=== PATIENT | male | born 1960 | race African-American/Black ===

== ENCOUNTER 2016-11-17 10:19 | Emergency (ER) | payer MEDICARE, MEDICAID ==
[2016-11-17] MEDS ORDERED: ASPIRIN 81 MG TABLET, CHEWABLE PO ONE (11:20)
--- NOTE | 2016-11-17 11:21 | ER Document Report ---
ED Medical Screen (RME) - General Chief Complaint: Chest Pain Stated Complaint: CHEST PAIN Time Seen by Provider: 11/17/16 11:20 Mode of Arrival: Ambulatory Information source: Patient TRAVEL OUTSIDE OF THE [place] IN LAST 30 DAYS: No - HPI Patient complains to provider of: Chest Pain Notes: 11/17/16 11:21 Patient is a 56-year-old male with a history of diabetes, hypertension, right BKA, who presents to the emergency room complaining of sharp stabbing and dull and aching chest pain is been going on for the past hour, he reports nausea associated with it but no shortness of breath, no diaphoresis, he did not take anything for the pain prior to coming to the emergency room - Related Data Allergies/Adverse Reactions: hydromorphone HCl [From Dilaudid] Allergy (Verified 11/17/16 10:22) Past Medical History - Past Medical History Cardiac Medical History: Reports: Hx Hypercholesterolemia, Hx Hypertension, Hx Peripheral Vascular Disease Pulmonary Medical History: Reports: Hx Asthma, Hx Pneumonia Neurological Medical History: Reports: Hx Cerebrovascular Accident. Denies: Hx Seizures Endocrine Medical History: Reports: Hx Diabetes Mellitus Type 2 Renal/ Medical History: Reports: Hx Benign Prostatic Hyperplasia, Hx Renal Insufficiency. Denies: Hx Peritoneal Dialysis Malignancy Medical History: GI Medical History: Reports: Hx Gastroesophageal Reflux Disease, Hx Hiatal Hernia Musculoskeltal Medical History: Reports Hx Arthritis - hands, Reports Hx Musculoskeletal Deformity, Reports Hx Musculoskeletal Trauma Skin Medical History: Reports Hx Cellulitis Psychiatric Medical History: Reports: Hx Depression Traumatic Medical History: Reports: Hx Fractures - Abdomen ankle Infectious Medical History: Denies: Hx HIV Past Surgical History: Reports: Hx Inguinal Hernia, Hx Orthopedic Surgery - R BKA, Hx Vascular Surgery - Femoral stent left leg - Immunizations Hx Diphtheria, Pertussis, Tetanus Vaccination: Yes - 2008 Physical Exam - Vital signs Vitals: Temp Pulse Resp BP Pulse Ox 98.3 F 94 18 138/84 H 99 11/17/16 10:11/17/16 10:11/17/16 10:11/17/16 10:11/17/16 10:22 Course - Vital Signs Vital signs: Temp Pulse Resp BP Pulse Ox 98.3 F 94 18 138/84 H 99 11/17/16 10:11/17/16 10:11/17/16 10:22 11/17/16 10:22 11/17/16 10:22
--- NOTE | 2016-11-17 12:12 | RADIOLOGY REPORT (SQ) ---
EXAM DESCRIPTION: CHEST PA/LAT COMPLETED DATE/TIME: 11/17/2016 11:50 am REASON FOR STUDY: cp COMPARISON: 09/27/2015. EXAM PARAMETERS: NUMBER OF VIEWS: two views TECHNIQUE: Digital Frontal and Lateral radiographic views of the chest acquired. RADIATION DOSE: NA LIMITATIONS: none FINDINGS: LUNGS AND PLEURA: No opacities, masses or pneumothorax. No pleural effusion. MEDIASTINUM AND HILAR STRUCTURES: No masses or contour abnormalities. HEART AND VASCULAR STRUCTURES: Heart normal size. No evidence for failure. BONES: No acute findings. HARDWARE: None in the chest. OTHER: No other significant finding. IMPRESSION: NO SIGNIFICANT RADIOGRAPHIC FINDING IN THE CHEST. TECHNICAL DOCUMENTATION: JOB ID: [id number] [email or web address]- All Rights Reserved
[2016-11-17 12:22] LABS: ABSOLUTE BASOPHILS # (AUTO) 0.1 10^3/uL (0.0-0.2); ABSOLUTE EOSINOPHILS # (AUTO) 0.4 10^3/uL (0.0-0.6); ABSOLUTE LYMPHOCYTES (AUTO) 2.2 10^3/uL (0.5-4.7); ABSOLUTE MONOCYTES (AUTO) 0.7 10^3/uL (0.1-1.4); ABSOLUTE NEUT (AUTO) 4.7 10^3/uL (1.7-8.2); APPEARANCE,URINE CLEAR; BASOPHILS % (AUTO) 0.9 % (0-2); BILIRUBIN,URINE NEGATIVE (NEGATIVE); EOSINOPHILS % (AUTO) 4.4 % (0-6); GLUCOSE, URINE NEGATIVE (NEGATIVE); HEMATOCRIT 41.1 % (37.9-51.0); HEMOGLOBIN 13.1 g/dL (13.5-17.0); HGB HCT DIFFERENCE -1.8; KETONES,URINE NEGATIVE (NEGATIVE); LEUKOCYTE ESTERASE,URINE NEGATIVE (NEGATIVE); MEAN CORPUSCULAR HEMOGLOBIN 27.5 pg (27.0-33.4); MEAN CORPUSCULAR HGB CONC 31.9 g/dL (32.0-36.0); MEAN CORPUSCULAR VOLUME 86 fl (80-97); MONOCYTES % (AUTO) 8.4 % (3-13); NITRITE,URINE NEGATIVE (NEGATIVE); PROTEIN,URINE NEGATIVE (NEGATIVE); RED BLOOD COUNT 4.77 10^6/uL (4.35-5.55); SEGMENTED NEUTROPHILS % (AUTO) 59.3 % (42-78); URINE SPECIFIC GRAVITY 1.013; UROBILINOGEN,URINE NEGATIVE mg/dL (<2.0)
[2016-11-17 12:47] LABS: URINE BARBITURATES SCREEN NEGATIVE; URINE METHADONE SCREEN NEGATIVE; URINE OPIATES LOW NEGATIVE; URINE PHENCYCLIDINE SCREEN NEGATIVE
[2016-11-17 12:52] LABS: ALANINE AMINOTRANSFERASE 20 U/L (21-72); ALBUMIN 4.3 g/dL (3.5-5.0); ALKALINE PHOSPHATASE 62 U/L (38-126); ANION GAP 12 (5-19); ASPARTATE AMINO TRANSFERASE 18 U/L (17-59); BILIRUBIN,DIRECT 0.3 mg/dL (0.0-0.4); BILIRUBIN,TOTAL 0.5 mg/dL (0.2-1.3); BLOOD UREA NITROGEN 28 mg/dL (7-20); CALCIUM 9.4 mg/dL (8.4-10.2); CARBON DIOXIDE 22 mmol/L (22-30); CHLORIDE 108 mmol/L (98-107); CREATINE KINASE 101 U/L (55-170); CREATININE RESULT 1.75 mg/dL (0.52-1.25); GLUCOSE 138 mg/dL (75-110); POTASSIUM 4.7 mmol/L (3.6-5.0); SODIUM 142.4 mmol/L (137-145)
[2016-11-17 13:09] LABS: TROPONIN I < 0.012 ng/mL
[2016-11-17 15:50] VITALS: BP 134/85
--- NOTE | 2016-11-17 16:02 | ER Document Report ---
ED General - General Chief Complaint: Chest Pain Stated Complaint: CHEST PAIN Time Seen by Provider: 11/17/16 11:20 Mode of Arrival: Ambulatory Information source: Patient Notes: 56-year-old male history of hypertension hypercholesterolemia right BKA presents with complaint of midsternal epigastric abdominal pain. Patient notes that when he bends forward he gets midsternal chest pressure however when he sits back or lays down the symptoms completely resolved. Patient notes at rest and when laying flat he has no pain ever. States he can easily reproduce the pain when he bends forward Also notes he has muscle cramps in his extremity his neck back TRAVEL OUTSIDE OF THE [place] IN LAST 30 DAYS: No - HPI Onset: Just prior to arrival Onset/Duration: Intermittent Quality of pain: Pressure Severity: Mild Pain Level: 1 Associated symptoms: Chest pain Exacerbated by: Other - Bending forward Relieved by: Denies Similar symptoms previously: No Recently seen / treated by doctor: No - Related Data Allergies/Adverse Reactions: hydromorphone HCl [From Dilaudid] Allergy (Verified 11/17/16 10:22) Past Medical History - General Information source: Patient - Social History Smoking Status: Never Smoker Cigarette use (# per day): No Chew tobacco use (# tins/day): No Smoking Education Provided: No Family History: Arthritis, COPD, CVA, DM, Hyperlipidemia, Hypertension, Malignancy, Thyroid Disfunction Patient has suicidal ideation: No Patient has homicidal ideation: No - Past Medical History Cardiac Medical History: Reports: Hx Hypercholesterolemia, Hx Hypertension, Hx Peripheral Vascular Disease Pulmonary Medical History: Reports: Hx Asthma, Hx Pneumonia Neurological Medical History: Reports: Hx Cerebrovascular Accident. Denies: Hx Seizures Endocrine Medical History: Reports: Hx Diabetes Mellitus Type 2 Renal/ Medical History: Reports: Hx Benign Prostatic Hyperplasia, Hx Renal Insufficiency. Denies: Hx Peritoneal Dialysis Malignancy Medical History: GI Medical History: Reports: Hx Gastroesophageal Reflux Disease, Hx Hiatal Hernia Musculoskeltal Medical History: Reports Hx Arthritis - hands, Reports Hx Musculoskeletal Deformity, Reports Hx Musculoskeletal Trauma Skin Medical History: Reports Hx Cellulitis Psychiatric Medical History: Reports: Hx Depression Traumatic Medical History: Reports: Hx Fractures - Abdomen ankle Infectious Medical History: Denies: Hx HIV Past Surgical History: Reports: Hx Inguinal Hernia, Hx Orthopedic Surgery - R BKA, Hx Vascular Surgery - Femoral stent left leg - Immunizations Hx Diphtheria, Pertussis, Tetanus Vaccination: Yes - 2009 Review of Systems - Review of Systems Notes: REVIEW OF SYSTEMS: CONSTITUTIONAL : Denies fever, chills, or sweats. Denies recent illness. EENT: Denies eye, ear, throat, or mouth pain or symptoms. Denies nasal or sinus congestion or discharge. Denies throat, tongue, or mouth swelling or difficulty swallowing. CARDIOVASCULAR: Admits to chest pain when bending forward RESPIRATORY: Denies cough, cold, or chest congestion. Denies shortness of breath, difficulty breathing, or wheezing. GASTROINTESTINAL: Denies abdominal pain or distention. Denies nausea, vomiting , or diarrhea. Denies blood in vomitus, stools, or per rectum. Denies black, tarry stools. Denies constipation. GENITOURINARY: Denies difficulty urinating, painful urination, burning, frequency, blood in urine, or discharge. MUSCULOSKELETAL: Denies back or neck pain or stiffness. Denies joint pain or swelling. SKIN: Denies rash, lesions or sores. HEMATOLOGIC : Denies easy bruising or bleeding. LYMPHATIC: Denies swollen, enlarged glands. NEUROLOGICAL: Denies confusion or altered mental status. Denies passing out or loss of consciousness. Denies dizziness or lightheadedness. Denies headache. Denies weakness or paralysis or loss of use of either side. Denies problems with gait or speech. Denies sensory loss, numbness, or tingling. Denies seizures. PSYCHIATRIC: Denies anxiety or stress. Denies depression, suicidal ideation, or homicidal ideation. ALL OTHER SYSTEMS REVIEWED AND NEGATIVE. Dictation was performed using [employer] voice recognition software PHYSICAL EXAMINATION: GENERAL: Well-appearing, well-nourished and in no acute distress. HEAD: Atraumatic, normocephalic. EYES: Pupils equal round and reactive to light, extraocular movements intact, sclera anicteric, conjunctiva are normal. ENT: Nares patent, oropharynx clear without exudates. Moist mucous membranes. NECK: Normal range of motion, supple without lymphadenopathy LUNGS: Breath sounds clear to auscultation bilaterally and equal. No wheezes rales or rhonchi. HEART: Regular rate and rhythm without murmurs pain reproducible with movement ABDOMEN: Soft, nontender, nondistended abdomen. No guarding, no rebound. No masses appreciated. Musculoskeletal: Right BKA NEUROLOGICAL: Cranial nerves grossly intact. Normal speech, normal gait. Normal sensory, motor exams PSYCH: Normal mood, normal affect. SKIN: Warm, Dry, normal turgor, no rashes or lesions noted. Physical Exam - Vital signs Vitals: Temp Pulse Resp BP Pulse Ox 98.3 F 94 18 138/84 H 99 11/17/16 10:22 11/17/16 10:22 11/17/16 10:22 11/17/16 10:22 11/17/16 10:22 Course - Re-evaluation Re-evalutation: 11/17/16 16:06 Given that the chest pain is reproducible with bending forward there is no sign of pericarditis on the EKG I do not believe this is cardiac in nature however the patient does have extensive risk factors. I begged them to at least perform 2 sets of cardiac enzymes which the patient was willing to stay for, second set was negative. I have requested that he see a steamer tender to further evaluate his chest pain, both he and his sister and significant other agree with this plan. Patient is very insistent on leaving and is very anxious to leave, I do not believe this is a complete cardiac evaluation and they have been made very aware of this and I do believe that the patient needs to return immediately if there is any other concerns and he states he will do so After performing a Medical Screening Examination, I estimate there is LOW risk for RUPTURED ESOPHAGUS, PNEUMOTHORAX, PULMONARY EMBOLISM, ACUTE CORONARY SYNDROME, OR THORACIC AORTIC DISSECTION, thus I consider the discharge disposition reasonable. I have reevaluated this patient multiple times and no significant life threatening changes are noted. The patient and I have discussed the diagnosis and risks, and we agree with discharging home with close follow-up. We also discussed returning to the Emergency Department immediately if new or worsening symptoms occur. We have discussed the symptoms which are most concerning (e.g., bloody sputum, worsening pain or shortness of breath) that necessitate immediate return. - Vital Signs Vital signs: Temp Pulse Resp BP Pulse Ox 98.3 F 94 15 134/85 H 100 11/17/16 10:22 11/17/16 10:22 11/17/16 15:44 11/17/16 15:44 11/17/16 15:43 - Laboratory Result Diagrams: 11/17/16 11:25 11/17/16 11:25 Laboratory results interpreted by me: 11/17/16 11/17/16 11:25 11:25 Hgb 13.1 L MCHC 31.9 L Chloride 108 H BUN 28 H Creatinine 1.75 H Est GFR ( Amer) 49 L Est GFR (Non-Af Amer) 40 L Glucose 138 H ALT 20 L - Diagnostic Test Radiology reviewed: Image reviewed, Reports reviewed - No acute abnormality - EKG Interpretation by Id EKG shows normal: Sinus rhythm, [place], Intervals, QRS Complexes Discharge - Discharge Clinical Impression: Epigastric pain, Muscle cramp Chest pain Qualifiers: Chest pain type: unspecified Qualified Code(s): R07.9 - Chest pain, unspecified Condition: Stable Disposition: HOME, SELF-CARE Instructions: Chest Pain of Unclear Cause ([facility]) Referrals: NAVDEEP AMADO MD [Primary Care Provider] - Follow up as needed SON HART MD [ACTIVE STAFF] - Follow up tomorrow
--- NOTE | 2016-11-17 17:58 | EKG REPORT ---
SEVERITY:- OTHERWISE NORMAL ECG - SINUS RHYTHM BORDERLINE LEFT AXIS DEVIATION : Confirmed by: Marjorie Staley MD 17-Nov-2016 17:57:33
== END 2016-11-17 16:05 | disposition home or self-care (01) ==
LOC: ER 10:19
DX: R07.9 Chest pain, unspecified (principal); R10.13 Epigastric pain; R25.2 Cramp and spasm; I10 Essential (primary) hypertension; E78.00 Pure hypercholesterolemia, unspecified
CPT/HCPCS: 93005; 99285; 36415; 87086; 82553; 82550; 85025; 87088; 80053; 81001; 84484; 87186; 80307; 83880; 71020; 93010; A9270

== ENCOUNTER 2017-10-04 18:54 | Emergency (ER) | payer MEDICARE, MEDICAID ==
--- NOTE | 2017-10-04 19:09 | ER Document Report ---
HPI - HPI Pain Level: 3 - REPRODUCTIVE Reproductive: DENIES: : Past Medical History - Social History Family History: Arthritis, COPD, CVA, DM, Hyperlipidemia, Hypertension, Malignancy, Thyroid Disfunction - Past Medical History Cardiac Medical History: Reports: Hx Hypercholesterolemia, Hx Hypertension, Hx Peripheral Vascular Disease Pulmonary Medical History: Reports: Hx Asthma, Hx Pneumonia Neurological Medical History: Reports: Hx Cerebrovascular Accident. Denies: Hx Seizures Endocrine Medical History: Reports: Hx Diabetes Mellitus Type 2 Renal/ Medical History: Reports: Hx Benign Prostatic Hyperplasia, Hx Renal Insufficiency. Denies: Hx Peritoneal Dialysis Malignancy Medical History: GI Medical History: Reports: Hx Gastroesophageal Reflux Disease, Hx Hiatal Hernia. Denies: Hx Pancreatitis Musculoskeltal Medical History: Reports Hx Arthritis - hands, Reports Hx Musculoskeletal Deformity, Reports Hx Musculoskeletal Trauma Skin Medical History: Reports Hx Cellulitis Psychiatric Medical History: Reports: Hx Depression Traumatic Medical History: Reports: Hx Fractures - Abdomen ankle Infectious Medical History: Denies: Hx HIV Past Surgical History: Reports: Hx Inguinal Hernia, Hx Orthopedic Surgery - R BKA, Hx Vascular Surgery - Femoral stent left leg - Immunizations Hx Diphtheria, Pertussis, Tetanus Vaccination: Yes - 2008 [employer] Provider Document - INFECTION CONTROL TRAVEL OUTSIDE OF THE [place] IN LAST 30 DAYS: No Course - Vital Signs Vital signs: Temp Pulse Resp BP Pulse Ox 98.6 F 93 16 109/71 97 10/04/17 19:01 10/04/17 19:01 10/04/17 19:01 10/04/17 19:01 10/04/17 19:01
--- NOTE | 2017-10-04 19:16 | ER Document Report ---
ED Medical Screen (RME) - General Chief Complaint: Urinary Problem Stated Complaint: PAINFUL URINATION,URGENCY Time Seen by Provider: 10/04/17 19:08 Mode of Arrival: Ambulatory Information source: Patient Notes: 57 yo DM 2, HTN, male c/o urinary dribbling, frequency, urgency, hesitancy, dysuria since yesterday. Night sweats for months. No PSA or prostate check. Thought he was constipated so he took laxative a week ago. TRAVEL OUTSIDE OF THE [place] IN LAST 30 DAYS: No - Related Data Allergies/Adverse Reactions: hydromorphone HCl [From Dilaudid] Allergy (Verified 10/04/17 18:58) Past Medical History - Past Medical History Cardiac Medical History: Reports: Hx Hypercholesterolemia, Hx Hypertension, Hx Peripheral Vascular Disease Pulmonary Medical History: Reports: Hx Asthma, Hx Pneumonia Neurological Medical History: Reports: Hx Cerebrovascular Accident. Denies: Hx Seizures Endocrine Medical History: Reports: Hx Diabetes Mellitus Type 2 Renal/ Medical History: Reports: Hx Benign Prostatic Hyperplasia, Hx Renal Insufficiency. Denies: Hx Peritoneal Dialysis Malignancy Medical History: GI Medical History: Reports: Hx Gastroesophageal Reflux Disease, Hx Hiatal Hernia. Denies: Hx Pancreatitis Musculoskeltal Medical History: Reports Hx Arthritis - hands, Reports Hx Musculoskeletal Deformity, Reports Hx Musculoskeletal Trauma Skin Medical History: Reports Hx Cellulitis Psychiatric Medical History: Reports: Hx Depression Traumatic Medical History: Reports: Hx Fractures - Abdomen ankle Infectious Medical History: Denies: Hx HIV Past Surgical History: Reports: Hx Inguinal Hernia, Hx Orthopedic Surgery - R BKA, Hx Vascular Surgery - Femoral stent left leg - Immunizations Hx Diphtheria, Pertussis, Tetanus Vaccination: Yes - 2008 Physical Exam - Vital signs Vitals: Temp Pulse Resp BP Pulse Ox 98.6 F 93 16 109/71 97 10/04/17 19:01 10/04/17 19:01 10/04/17 19:01 10/04/17 19:01 10/04/17 19:01 Course - Vital Signs Vital signs: Temp Pulse Resp BP Pulse Ox 98.6 F 93 16 109/71 97 10/04/17 19:01 10/04/17 19:01 10/04/17 19:01 10/04/17 19:01 10/04/17 19:01
[2017-10-04] MEDS ORDERED: TUBERCULIN,PURIF.PROT.DERIV. 5 TU/0.1 ML TEST 1 ML VIAL ID ONE (19:26)
[2017-10-04 19:51] LABS: ABSOLUTE BASOPHILS # (AUTO) 0.1 10^3/uL (0.0-0.2); ABSOLUTE EOSINOPHILS # (AUTO) 0.3 10^3/uL (0.0-0.6); ABSOLUTE LYMPHOCYTES (AUTO) 2.2 10^3/uL (0.5-4.7); ABSOLUTE NEUT (AUTO) 7.3 10^3/uL (1.7-8.2); BASOPHILS % (AUTO) 0.9 % (0-2); EOSINOPHILS % (AUTO) 2.8 % (0-6); HEMOGLOBIN 12.7 g/dL (13.5-17.0); LYMPHOCYTES % (AUTO) 20.4 % (13-45); MEAN CORPUSCULAR HGB CONC 33.3 g/dL (32.0-36.0); MEAN CORPUSCULAR VOLUME 84 fl (80-97); MONOCYTES % (AUTO) 9.5 % (3-13); PLATELET COUNT 186 10^3/uL (150-450); RED BLOOD COUNT 4.53 10^6/uL (4.35-5.55); RED CELL DISTRIBUTION WIDTH 13.3 % (11.5-14.0); SEGMENTED NEUTROPHILS % (AUTO) 66.4 % (42-78); TOTAL CELLS COUNTED % (AUTO) 100 %
[2017-10-04 20:09] LABS: ALANINE AMINOTRANSFERASE 23 U/L (21-72); ALKALINE PHOSPHATASE 71 U/L (38-126); ANION GAP 14 (5-19); ASPARTATE AMINO TRANSFERASE 15 U/L (17-59); BILIRUBIN,DIRECT 0.4 mg/dL (0.0-0.4); BILIRUBIN,TOTAL 0.5 mg/dL (0.2-1.3); BLOOD UREA NITROGEN 36 mg/dL (7-20); CALCIUM 9.6 mg/dL (8.4-10.2); CARBON DIOXIDE 21 mmol/L (22-30); CHLORIDE 108 mmol/L (98-107); GLUCOSE 158 mg/dL (75-110); POTASSIUM 4.8 mmol/L (3.6-5.0); SODIUM 142.7 mmol/L (137-145); TOTAL PROTEIN 6.8 g/dL (6.3-8.2)
--- NOTE | 2017-10-04 20:15 | ER Document Report ---
HPI - HPI Pain Level: 4 Notes: Patient is a 57-year-old male with a history of hypertension and type 2 diabetes who presents to the ED complaining of urinary hesitancy, weak stream, burning, and dribbling over the last week. Patient has also noted night sweats over the last couple years. Patient states that he has been otherwise eating and drinking without difficulties. He is having normal bowel movements. He denies any other recent illness. He has no other concerns or complaints at this time. Denies any headache, fever, neck pain, URI, sore throat, chest pain , palpitations, syncope, cough, shortness of breath, wheeze, dyspnea, abdominal pain, nausea/vomiting/diarrhea, hematuria, back pain, loss of control of bowel or bladder, saddle anesthesia, muscle paralysis/weakness, or rash. - ROS Systems Reviewed and Negative: Yes All other systems reviewed and negative - CONSTITUTIONAL Constitutional: DENIES: Fever, Chills - URINARY Urinary: REPORTS: Dysuria - dribbling, Frequency - and burning with urination - REPRODUCTIVE Reproductive: DENIES: : - DERM Skin Color: Normal Past Medical History - General Information source: Patient - Social History Smoking Status: Current Every Day Smoker Frequency of alcohol use: None Drug Abuse: None Family History: Arthritis, COPD, CVA, DM, Hyperlipidemia, Hypertension, Malignancy, Thyroid Disfunction Patient has suicidal ideation: No Patient has homicidal ideation: No - Past Medical History Cardiac Medical History: Reports: Hx Hypercholesterolemia, Hx Hypertension, Hx Peripheral Vascular Disease Pulmonary Medical History: Reports: Hx Asthma, Hx Pneumonia Neurological Medical History: Reports: Hx Cerebrovascular Accident. Denies: Hx Seizures Endocrine Medical History: Reports: Hx Diabetes Mellitus Type 2 Renal/ Medical History: Reports: Hx Benign Prostatic Hyperplasia, Hx Renal Insufficiency. Denies: Hx Peritoneal Dialysis Malignancy Medical History: GI Medical History: Reports: Hx Gastroesophageal Reflux Disease, Hx Hiatal Hernia. Denies: Hx Pancreatitis Musculoskeltal Medical History: Reports Hx Arthritis - hands, Reports Hx Musculoskeletal Deformity, Reports Hx Musculoskeletal Trauma Skin Medical History: Reports Hx Cellulitis Psychiatric Medical History: Reports: Hx Depression Traumatic Medical History: Reports: Hx Fractures - Abdomen ankle Infectious Medical History: Denies: Hx HIV Past Surgical History: Reports: Hx Inguinal Hernia, Hx Orthopedic Surgery - R BKA, Hx Vascular Surgery - Femoral stent left leg - Immunizations Hx Diphtheria, Pertussis, Tetanus Vaccination: Yes - 2009 [facility] Provider Document - CONSTITUTIONAL Agree With Documented VS: Yes Notes: PHYSICAL EXAMINATION: GENERAL: Well-appearing, well-nourished and in no acute distress. HEAD: Atraumatic, normocephalic. EYES: Pupils equal round and reactive to light, extraocular movements intact, sclera anicteric, conjunctiva are normal. ENT: nares patent and without discharge. oropharynx clear without exudates. No tonsilar hypertrophy or erythema. Moist mucous membranes. NECK: Normal range of motion, supple without lymphadenopathy LUNGS: Breath sounds clear to auscultation bilaterally and equal. No wheezes rales or rhonchi. HEART: Regular rate and rhythm without murmurs, rubs, gallops. ABDOMEN: Soft, nontender, nondistended abdomen. No guarding, no rebound. No masses appreciated. Normal bowel sounds present. No CVA tenderness bilaterally. : no urethral discharge. non-tender. no erythema, warmth. Rectal: Prostate was firm, nontender. I can only palpate about 1/3 of the actual prostate. Extremities: No cyanosis, clubbing, or edema b/l. Peripheral pulses 2+. Capillary refill less than 3 seconds. BKA rt leg. NEUROLOGICAL: Normal speech, normal gait. Normal sensory, motor exams PSYCH: Normal mood, normal affect. SKIN: Warm, Dry, normal turgor, no rashes or lesions noted. - INFECTION CONTROL TRAVEL OUTSIDE OF THE [place] IN LAST 30 DAYS: No Course - Re-evaluation Re-evalutation: 10/04/17 21:14 Patient is an afebrile, well-hydrated, 57-year-old male who presents to the ED with an acute UTI, possible early pyelonephritis (w/o CVA tenderness). Vitals are acceptable. PE is otherwise unremarkable. CBC unremarkable for any acute pathology aside from a mildly elevated wbc at 11. See urinalysis results. Urine cultures pending. CMP shows chronic kidney disease with a creatinine of 2.2. Patient is still on metformin. Advised patient that he needs to stop the metformin until his evaluation with his primary care provider. Patient is otherwise tolerating p.o. without difficulties. PSA was mildly elevated and this will need monitored by a urologist or his primary care provider for further evaluation as well. PPD recommended, pt should go to [facility]/health department to have performed (per charge nurse, we do not have the medicine here ). Will need read in 2-3 days by PCM. I will send him home with a prescription for doxycycline. Conservative measures otherwise for symptoms. Recheck with your PCM in 2-3 days. Monitor sugars closely. Schedule consult with urology. Return to the ED with any worsening/concerning symptoms otherwise as reviewed discharge. Patient is in agreement. - Vital Signs Vital signs: Temp Pulse Resp BP Pulse Ox 98.6 F 93 16 109/71 97 10/04/17 19:01 10/04/17 19:01 10/04/17 19:01 10/04/17 19:01 10/04/17 19:01 - Laboratory Result Diagrams: 10/04/17 19:35 10/04/17 19:35 Laboratory results interpreted by me: 10/04/17 19:35 WBC 11.0 H Hgb 12.7 L Discharge - Discharge Clinical Impression: Acute UTI, Elevated PSA CKD (chronic kidney disease) Qualifiers: Chronic kidney disease stage: unspecified stage Qualified Code(s): N18.9 - Chronic kidney disease, unspecified Condition: Stable Disposition: HOME, SELF-CARE Instructions: Urinary Tract Infection ([facility]), Doxycycline ([facility]) Additional Instructions: Push fluids (i.e. water, cranberry juice) Proper hygenic technique Keep the skin clean Tylenol/ibuprofen as needed Stop your metformin until evaluation by her primary care provider Take medications as directed You should have a PPD performed by your PCM or the health department F/u with your PCM in 2-3 days for a recheck Schedule a consult with a Urologist for further evaluation of your PSA level Return to the ED with any worsening symptoms and/or development of fever, headache, chest pain, palpitations, syncope, shortness of breath, trouble breathing, abdominal pain, n/v/d, blood in stool/urine, loss of control of bowel /bladder, urinary retention, or other worsening symptoms that are concerning to you. Prescriptions: Doxycycline Hyclate 100 mg PO BID #14 capsule Referrals: NAVDEEP AMADO MD [NO LOCAL MD] - 10/06/17 [facility] [Provider Group] - Follow up in 3-5 days
[2017-10-04 20:27] LABS: APPEARANCE,URINE CLOUDY; BILIRUBIN,URINE NEGATIVE (NEGATIVE); COLOR,URINE YELLOW; GLUCOSE, URINE NEGATIVE (NEGATIVE); KETONES,URINE NEGATIVE (NEGATIVE); LEUKOCYTE ESTERASE,URINE LARGE (NEGATIVE); NITRITE,URINE NEGATIVE (NEGATIVE); PROTEIN,URINE 100 mg/dL (NEGATIVE); URINE SPECIFIC GRAVITY 1.013; UROBILINOGEN,URINE NEGATIVE mg/dL (<2.0)
[2017-10-04] MEDS ORDERED: DOXYCYCLINE HYCLATE 100 MG TABLET PO ONE (21:21)
[2017-10-04 21:40] VITALS: BP 120/75
== END 2017-10-04 21:40 | disposition home or self-care (01) ==
LOC: ER 18:54
DX: N39.0 Urinary tract infection, site not specified (principal); R97.20 Elevated prostate specific antigen [PSA]; N18.9 Chronic kidney disease, unspecified; E78.00 Pure hypercholesterolemia, unspecified; I12.9 Hypertensive chronic kidney disease with stage 1 through stage 4 chronic kidney disease, or unspecified chronic kidney disease; E11.22 Type 2 diabetes mellitus with diabetic chronic kidney disease; Z86.73 Personal history of transient ischemic attack (TIA), and cerebral infarction without residual deficits; F17.200 Nicotine dependence, unspecified, uncomplicated
CPT/HCPCS: 99283; 36415; 87086; 82962; 84153; 85025; 87088; 80053; 81001; 87186; A9270; J3490

== ENCOUNTER 2017-12-07 18:48 | Emergency (ER) | payer MEDICARE, MEDICAID ==
--- NOTE | 2017-12-07 19:40 | ER Document Report ---
ED Medical Screen (RME) - General Chief Complaint: Chest Pain Stated Complaint: CHEST PAIN Time Seen by Provider: 12/07/17 19:33 Notes: RAPID MEDICAL EVALUATION DISCLOSURE I have seen this patient as part of a Rapid Medical Evaluation and, if applicable, placed any initially appropriate orders. The patient will be seen and fully evaluated, including a full history and physical exam, by a provider ( in Main ED or Fast Track) when a room becomes available. 57-year-old male here with complaints of midsternal nonradiating chest pain that started 1 hour ago about an hour later just prior to arrival. He did not have any shortness of breath diaphoresis lightheadedness nausea vomiting numbness tingling. He did not take anything for the symptoms. The symptoms were not worse with breathing or exertion. He has no prior history of DVT PE AR but does have a history of peripheral vascular disease with a stent in his left leg. EXAM CTAB RRR TRAVEL OUTSIDE OF THE [place] IN LAST 30 DAYS: No - Related Data Allergies/Adverse Reactions: hydromorphone HCl [From Dilaudid] Allergy (Verified 12/07/17 19:27) Past Medical History - Past Medical History Cardiac Medical History: Reports: Hx Hypercholesterolemia, Hx Hypertension, Hx Peripheral Vascular Disease Pulmonary Medical History: Reports: Hx Asthma, Hx Pneumonia Neurological Medical History: Reports: Hx Cerebrovascular Accident. Denies: Hx Seizures Endocrine Medical History: Reports: Hx Diabetes Mellitus Type 2 Renal/ Medical History: Reports: Hx Benign Prostatic Hyperplasia, Hx Renal Insufficiency. Denies: Hx Peritoneal Dialysis Malignancy Medical History: GI Medical History: Reports: Hx Gastroesophageal Reflux Disease, Hx Hiatal Hernia. Denies: Hx Pancreatitis Musculoskeltal Medical History: Reports Hx Arthritis - hands, Reports Hx Musculoskeletal Deformity, Reports Hx Musculoskeletal Trauma Skin Medical History: Reports Hx Cellulitis Psychiatric Medical History: Reports: Hx Depression Traumatic Medical History: Reports: Hx Fractures - Abdomen ankle Infectious Medical History: Denies: Hx HIV Past Surgical History: Reports: Hx Inguinal Hernia, Hx Orthopedic Surgery - R BKA, Hx Vascular Surgery - Femoral stent left leg - Immunizations Hx Diphtheria, Pertussis, Tetanus Vaccination: Yes - 2008 Physical Exam - Vital signs Vitals: Temp Pulse Resp BP Pulse Ox 97.8 F 87 16 126/79 H 96 12/07/17 19:26 12/07/17 19:26 12/07/17 19:26 12/07/17 19:26 12/07/17 19:26 Course - Vital Signs Vital signs: Temp Pulse Resp BP Pulse Ox 97.8 F 87 16 126/79 H 96 12/07/17 19:26 12/07/17 19:26 12/07/17 19:26 12/07/17 19:26 12/07/17 19:26 Doctor's Discharge - Discharge Referrals: Angelo KUMARI MD [Primary Care Provider] - Follow up as needed
[2017-12-07 20:04] LABS: ABSOLUTE EOSINOPHILS # (AUTO) 0.4 10^3/uL (0.0-0.6); ABSOLUTE LYMPHOCYTES (AUTO) 2.5 10^3/uL (0.5-4.7); ABSOLUTE MONOCYTES (AUTO) 0.6 10^3/uL (0.1-1.4); ABSOLUTE NEUT (AUTO) 4.3 10^3/uL (1.7-8.2); BASOPHILS % (AUTO) 0.6 % (0-2); EOSINOPHILS % (AUTO) 5.1 % (0-6); HEMATOCRIT 39.5 % (37.9-51.0); HEMOGLOBIN 13.1 g/dL (13.5-17.0); LYMPHOCYTES % (AUTO) 32.1 % (13-45); MEAN CORPUSCULAR HEMOGLOBIN 28.5 pg (27.0-33.4); MEAN CORPUSCULAR HGB CONC 33.3 g/dL (32.0-36.0); MEAN CORPUSCULAR VOLUME 86 fl (80-97); PLATELET COUNT 205 10^3/uL (150-450); RED BLOOD COUNT 4.61 10^6/uL (4.35-5.55); RED CELL DISTRIBUTION WIDTH 14.1 % (11.5-14.0); SEGMENTED NEUTROPHILS % (AUTO) 54.2 % (42-78); TOTAL CELLS COUNTED % (AUTO) 100 %; WHITE BLOOD COUNT 7.9 10^3/uL (4.0-10.5)
--- NOTE | 2017-12-07 20:08 | RADIOLOGY REPORT (SQ) ---
EXAM DESCRIPTION: CHEST 2 VIEWS COMPLETED DATE/TIME: 12/07/2017 7:57 pm REASON FOR STUDY: CP COMPARISON: 11/17/2016 EXAM PARAMETERS: NUMBER OF VIEWS: two views TECHNIQUE: Digital Frontal and Lateral radiographic views of the chest acquired. RADIATION DOSE: NA LIMITATIONS: none FINDINGS: LUNGS AND PLEURA: No acute opacities, masses or pneumothorax. No pleural effusion. MEDIASTINUM AND HILAR STRUCTURES: No masses or contour abnormalities. HEART AND VASCULAR STRUCTURES: Heart normal size. No evidence for failure. BONES: No acute findings. HARDWARE: None in the chest. OTHER: No other significant finding. IMPRESSION: NO ACUTE RADIOGRAPHIC FINDING IN THE CHEST. TECHNICAL DOCUMENTATION: JOB ID: [id number] 2010 [employer]- All Rights Reserved Reading location - IP/workstation name: [email or web address]
--- NOTE | 2017-12-07 20:24 | EKG REPORT ---
SEVERITY:- ABNORMAL ECG - SINUS RHYTHM PROBABLE LEFT ATRIAL ABNORMALITY BORDERLINE LEFT AXIS DEVIATION ABNRM R PROG, CONSIDER ASMI OR LEAD PLACEMENT : Confirmed by: Marjorie Staley MD 07-Dec-2017 20:24:01
[2017-12-07 20:29] LABS: ALANINE AMINOTRANSFERASE 14 U/L (21-72); ALBUMIN 3.9 g/dL (3.5-5.0); ALKALINE PHOSPHATASE 77 U/L (38-126); ANION GAP 10 (5-19); ASPARTATE AMINO TRANSFERASE 16 U/L (17-59); BILIRUBIN,DIRECT 0.3 mg/dL (0.0-0.4); BILIRUBIN,TOTAL 0.3 mg/dL (0.2-1.3); BLOOD UREA NITROGEN 26 mg/dL (7-20); CALCIUM 9.2 mg/dL (8.4-10.2); CARBON DIOXIDE 23 mmol/L (22-30); CHLORIDE 110 mmol/L (98-107); GLUCOSE 156 mg/dL (75-110); POTASSIUM 4.3 mmol/L (3.6-5.0); SODIUM 142.6 mmol/L (137-145); TOTAL PROTEIN 6.8 g/dL (6.3-8.2)
--- NOTE | 2017-12-07 21:49 | ER Document Report ---
ED Cardiac - General Mode of Arrival: Medic Information source: Patient TRAVEL OUTSIDE OF THE [place] IN LAST 30 DAYS: No <TRACI RAY - Last Filed: 12/07/17 21:57> <NEEL CHAWLA - Last Filed: 12/07/17 23:47> - General Chief Complaint: Chest Pain Stated Complaint: CHEST PAIN Time Seen by Provider: 12/07/17 19:33 Notes: 57 y.o male with HTN, HLD, periferal vascular disease, CVA, type 2 DM and GERD and a PMHx of RT inguinal hernia presents to the ED with CP of onset around 1830 this evening while watching TV. Pt reports the pain is to the center of his chest and denies any radiation. Pt also reports that he is also passing a lot of gas whenever he experiences this chest pain. Pt denies any change in pain with deep breathes but does admit to a cramping feeling just below his sternum when he moves a certain way. Pt's PCP is at [facility]. Pt reports a LLE angioplasty scheduled for 12/11/17, and is scheduled to get lab work done tomorrow. (TRACI RAY) This 57-year-old type II diabetic patient with peripheral vascular disease and hypertension comes emergency room complaining of a midsternal nonradiating chest pain started about 6:30 PM today while watching TV. He also reports he has been passing a lot of gas. He states that "if I stand up it will hurt to wear you know gas is coming". He also notices standing up, turning or twisting or rolling in the bed all provokes his pain. He also states he is supposed to get outpatient lab work done tomorrow, for an angioplasty to his left lower extremity that is scheduled for Thursday. He does take Plavix. He does continue to smoke. (NEEL CHAWLA) - Related Data Allergies/Adverse Reactions: hydromorphone HCl [From Dilaudid] Allergy (Verified 12/07/17 19:27) Past Medical History - General Information source: Patient - Social History Smoking Status: Current Every Day Smoker Cigarette use (# per day): Yes - .5 pack/day Chew tobacco use (# tins/day): No Smoking Education Provided: Yes Frequency of alcohol use: None Drug Abuse: None Family History: Arthritis, COPD, CVA, DM, Hyperlipidemia, Hypertension, Malignancy, Thyroid Disfunction Patient has suicidal ideation: No Patient has homicidal ideation: No - Past Medical History Cardiac Medical History: Reports: Hx Hypercholesterolemia, Hx Hypertension, Hx Peripheral Vascular Disease Pulmonary Medical History: Reports: Hx Asthma, Hx Pneumonia Neurological Medical History: Reports: Hx Cerebrovascular Accident Endocrine Medical History: Reports: Hx Diabetes Mellitus Type 2 Renal/ Medical History: Reports: Hx Benign Prostatic Hyperplasia, Hx Renal Insufficiency. Denies: Hx Peritoneal Dialysis Malignancy Medical History: GI Medical History: Reports: Hx Gastroesophageal Reflux Disease, Hx Hiatal Hernia Musculoskeltal Medical History: Reports Hx Arthritis - hands, Reports Hx Musculoskeletal Deformity, Reports Hx Musculoskeletal Trauma Skin Medical History: Reports Hx Cellulitis Psychiatric Medical History: Reports: Hx Depression Traumatic Medical History: Reports: Hx Fractures - Abdomen ankle Past Surgical History: Reports: Hx Inguinal Hernia, Hx Orthopedic Surgery - R BKA, Hx Vascular Surgery - Femoral stent left leg - Immunizations Hx Diphtheria, Pertussis, Tetanus Vaccination: Yes - 2008 <TRACI RAY - Last Filed: 12/07/17 21:57> Review of Systems - Review of Systems Constitutional: No symptoms reported EENT: No symptoms reported Cardiovascular: See HPI, Chest pain Respiratory: No symptoms reported Gastrointestinal: See HPI, Other - passing gas at onset of CP Genitourinary: No symptoms reported Male Genitourinary: No symptoms reported Musculoskeletal: No symptoms reported Skin: No symptoms reported Hematologic/Lymphatic: No symptoms reported Neurological/Psychological: No symptoms reported -: Yes All other systems reviewed and negative <TRACI RAY - Last Filed: 12/07/17 21:57> Physical Exam <TRACI RAY - Last Filed: 12/07/17 21:57> <NEEL CHAWLA - Last Filed: 12/07/17 23:47> - Vital signs Vitals: Temp Pulse Resp BP Pulse Ox 97.8 F 87 16 126/79 H 96 12/07/17 19:26 12/07/17 19:26 12/07/17 19:26 12/07/17 19:26 12/07/17 19:26 - Notes Notes: Physical Exam: General: Alert, appears well. HEENT: Normocephalic. Atraumatic. PERRL. Extraocular movements intact. Oropharynx clear. Neck: Supple. Non-tender. Respiratory: No respiratory distress. Clear and equal breath sounds bilaterally. Cardiovascular: Regular rate and rhythm. Sternal area tender to palpate. Abdominal: Normal Inspection. Non-tender. No distension. Normal Bowel Sounds. Back: Non-tender. No deformity or step off. Extremities: Moves all four extremities. Upper extremities: Normal inspection. Normal ROM. Lower extremities: RT BKA. No edema. Normal ROM. Neurological: Normal cognition. AAOx3. Normal speech. Psychological: Normal affect. Normal Mood. Skin: Warm. Dry. Normal color. (TRACI RAY) Course - Laboratory Result Diagrams: 12/07/17 19:50 12/07/17 19:50 <TRACI RAY - Last Filed: 12/07/17 21:57> - Laboratory Result Diagrams: 12/07/17 19:50 12/07/17 19:50 - Diagnostic Test Radiology reviewed: Image reviewed, Reports reviewed - Chest x-ray does not show acute process - EKG Interpretation by Me EKG shows normal: Sinus rhythm, [place], Intervals, QRS Complexes, ST-T Waves Rate: Normal - 83 Rhythm: NSR [place]/QRS: Left axis deviation P Waves: LAE When compared to previous EKG there are: No significant change <NEEL CHAWLA - Last Filed: 12/07/17 23:47> - Re-evaluation Re-evalutation: 12/07/17 23:31 Chest x-ray and EKG do not show acute process. Serial troponins are undetectable. Physical exam shows reproducible chest pain in the midsternal region. At this time there is low suspicion for this chest pain being cardiac related. 12/07/17 23:46 Looking at the recorded blood pressure shows a trend of very high blood pressures. I went in to see the patient, [place] high pressure recorded on the monitor, woke the patient up and got him a comfortable position repositioned the blood pressure cuff and repeat his blood pressure and found it to be 136/81. (NEEL CHAWLA) - Vital Signs Vital signs: Temp Pulse Resp BP Pulse Ox 97.8 F 87 12 169/90 H 99 12/07/17 19:26 12/07/17 19:33 12/07/17 23:01 12/07/17 23:01 12/07/17 23:01 - Laboratory Laboratory results interpreted by me: 12/07/17 12/07/17 19:50 19:50 Hgb 13.1 L RDW 14.1 H Chloride 110 H BUN 26 H Creatinine 1.83 H Est GFR ( Amer) 46 L Est GFR (Non-Af Amer) 38 L Glucose 156 H AST 16 L ALT 14 L Discharge <TRACI RAY - Last Filed: 12/07/17 21:57> <CAMMYCYDNEYNEEL - Last Filed: 12/07/17 23:47> - Discharge Clinical Impression: Chest pain Qualifiers: Chest pain type: unspecified Qualified Code(s): R07.9 - Chest pain, unspecified Condition: Stable Disposition: HOME, SELF-CARE Additional Instructions: Chest Pain of Unclear Cause The exact cause of your chest pain isn't clear. Fortunately, there is no evidence of a dangerous medical condition. Further testing may be required to find the source of the pain. Most often, we find that this pain is coming from the chest wall -- the muscles or rib joints in the chest. But chest pain can come from the lung and lung lining, the esophagus, the heart valves or heart lining, and even the stomach or gallbladder. Rest. Eat lightly until the pain is gone. We may prescribe medicine for pain and inflammation. You should call the physician immediately if the pain radiates to the shoulder, jaw or arms; if you start to run a fever or develop a cough; or if you develop shortness of breath, or other new or alarming symptoms. Your blood pressure was noted to be a little elevated this evening. Check your blood pressure a few times during the day and keep a record of the results. Follow-up with your medical doctor tomorrow for recheck of your blood pressure, and any other symptoms. RETURN TO THE EMERGENCY ROOM IF ANY NEW OR WORSENING SYMPTOMS. Referrals: JHONATAN IL NP [Primary Care Provider] - Follow up tomorrow Glynn Attestation: 12/07/17 22:51 I personally performed the services described in the documentation, reviewed and edited the documentation which was dictated to the scribe in my presence, and it accurately records my words and actions. (NEEL CHAWLA) Scribe Documentation - Scribe Written by Glynn:: Glynn Santos 12/07/17 2149 acting as scribe for :: Cammy <TRACI RAY - Last Filed: 12/07/17 21:57>
[2017-12-07 23:53] VITALS: BP 136/81
== END 2017-12-07 23:55 | disposition home or self-care (01) ==
LOC: ER 18:48
DX: R07.9 Chest pain, unspecified (principal); I10 Essential (primary) hypertension; E78.5 Hyperlipidemia, unspecified; I73.9 Peripheral vascular disease, unspecified; E11.9 Type 2 diabetes mellitus without complications; Z79.02 Long term (current) use of antithrombotics/antiplatelets; J45.909 Unspecified asthma, uncomplicated
CPT/HCPCS: 36415; 71046; 80053; 84484; 85025; 93005; 93010; 99285

== ENCOUNTER → 2017-12-08 | Outpatient (CLI) | payer MEDICARE, MEDICAID ==
[2017-12-08 12:58] LABS: ANION GAP 10 (5-19); BLOOD UREA NITROGEN 24 mg/dL (7-20); CALCIUM 8.9 mg/dL (8.4-10.2); CARBON DIOXIDE 25 mmol/L (22-30); CHLORIDE 108 mmol/L (98-107); GLUCOSE 163 mg/dL (75-110); POTASSIUM 4.8 mmol/L (3.6-5.0); SODIUM 143.2 mmol/L (137-145)
== END ==
LOC: LAB 12:26
PROVIDERS: ATTEND Physician Assistant Surgical
DX: Z01.812 Encounter for preprocedural laboratory examination (principal); I70.90 Unspecified atherosclerosis; I10 Essential (primary) hypertension
CPT/HCPCS: 36415; 80048

== ENCOUNTER → 2017-12-25 | Outpatient (CLI) | payer MEDICARE, MEDICAID ==
[2017-12-25 10:46] LABS: ABSOLUTE EOSINOPHILS # (AUTO) 0.5 10^3/uL (0.0-0.6); ABSOLUTE LYMPHOCYTES (AUTO) 2.2 10^3/uL (0.5-4.7); ABSOLUTE MONOCYTES (AUTO) 0.6 10^3/uL (0.1-1.4); ABSOLUTE NEUT (AUTO) 3.8 10^3/uL (1.7-8.2); BASOPHILS % (AUTO) 0.2 % (0-2); EOSINOPHILS % (AUTO) 7.4 % (0-6); HEMATOCRIT 41.6 % (37.9-51.0); HEMOGLOBIN 13.5 g/dL (13.5-17.0); LYMPHOCYTES % (AUTO) 30.7 % (13-45); MEAN CORPUSCULAR HGB CONC 32.5 g/dL (32.0-36.0); MEAN CORPUSCULAR VOLUME 86 fl (80-97); MONOCYTES % (AUTO) 8.6 % (3-13); PLATELET COUNT 213 10^3/uL (150-450); RED BLOOD COUNT 4.84 10^6/uL (4.35-5.55); RED CELL DISTRIBUTION WIDTH 14.1 % (11.5-14.0); SEGMENTED NEUTROPHILS % (AUTO) 53.1 % (42-78); TOTAL CELLS COUNTED % (AUTO) 100 %; WHITE BLOOD COUNT 7.1 10^3/uL (4.0-10.5)
[2017-12-25 10:58] LABS: APPEARANCE,URINE CLEAR; BILIRUBIN,URINE NEGATIVE (NEGATIVE); COLOR,URINE YELLOW; GLUCOSE, URINE NEGATIVE (NEGATIVE); KETONES,URINE NEGATIVE (NEGATIVE); LEUKOCYTE ESTERASE,URINE NEGATIVE (NEGATIVE); NITRITE,URINE NEGATIVE (NEGATIVE); PROTEIN,URINE 30 mg/dL (NEGATIVE); URINE SPECIFIC GRAVITY 1.018
[2017-12-25 11:12] LABS: ALANINE AMINOTRANSFERASE 20 U/L (21-72); ALBUMIN 3.9 g/dL (3.5-5.0); ALKALINE PHOSPHATASE 61 U/L (38-126); ANION GAP 9 (5-19); ASPARTATE AMINO TRANSFERASE 17 U/L (17-59); BILIRUBIN,DIRECT 0.2 mg/dL (0.0-0.4); BILIRUBIN,TOTAL 0.6 mg/dL (0.2-1.3); BLOOD UREA NITROGEN 21 mg/dL (7-20); CALCIUM 9.1 mg/dL (8.4-10.2); CARBON DIOXIDE 23 mmol/L (22-30); CHLORIDE 112 mmol/L (98-107); GLUCOSE 155 mg/dL (75-110); PHOSPHORUS 3.4 mg/dL (2.5-4.5); POTASSIUM 4.6 mmol/L (3.6-5.0); SODIUM 143.9 mmol/L (137-145); TOTAL PROTEIN 6.7 g/dL (6.3-8.2)
--- NOTE | 2017-12-25 11:29 | RADIOLOGY REPORT (SQ) ---
EXAM DESCRIPTION: U/S RETROPERITON (RENAL/AORTA) COMPLETED DATE/TIME: 12/25/2017 11:13 am REASON FOR STUDY: CKD III (N18.3) N18.3 CHRONIC KIDNEY DISEASE, STAGE 3 (MODERATE) E11.9 TYPE 2 DI ABETES MELLITUS WITHOUT COMPLICATIONS COMPARISON: None. TECHNIQUE: Dynamic and static grayscale images acquired of the kidneys and bladder and recorded on P ACS. Additional selected color Doppler and spectral images recorded. LIMITATIONS: None. FINDINGS: RIGHT KIDNEY: 9.4 cm Normal echogenicity. No solid or suspicious masses. No hydrone phrosis. No calcifications. LEFT KIDNEY: 10.7 cm Normal echogenicity. No solid or suspicious masses. No hydronephrosis. No calcifications. BLADDER: No masses. OTHER FINDINGS: No other significant finding. IMPRESSION: NORMAL RENAL AND BLADDER ULTRASOUND. TECHNICAL DOCUMENTATION: JOB ID: [id number] [employer]- All Rights Reserved Reading location - IP/workstation name: [email or web address]
[2017-12-25 11:31] LABS: UR PRO/CREAT RATIO RESULT 0.2 mg/mg (0.0-0.2); URINE CREATININE 244.4 mg/dL (22-328); URINE PROTEIN 41.2 mg/dL (<12)
== END ==
LOC: RAD 10:44
PROVIDERS: ATTEND Internal Medicine Nephrology
DX: E11.22 Type 2 diabetes mellitus with diabetic chronic kidney disease (principal); I12.9 Hypertensive chronic kidney disease with stage 1 through stage 4 chronic kidney disease, or unspecified chronic kidney disease; N18.3 Chronic kidney disease, stage 3 (moderate); I73.9 Peripheral vascular disease, unspecified
CPT/HCPCS: 36415; 76770; 80053; 81001; 82570; 83970; 84100; 84156; 85025

== ENCOUNTER 2018-03-03 14:38 | Emergency (ER) | payer MEDICARE, MEDICAID ==
[2018-03-03 16:44] LABS: ABSOLUTE BASOPHILS # (AUTO) 0.1 10^3/uL (0.0-0.2); ABSOLUTE EOSINOPHILS # (AUTO) 0.3 10^3/uL (0.0-0.6); ABSOLUTE LYMPHOCYTES (AUTO) 2.1 10^3/uL (0.5-4.7); ABSOLUTE NEUT (AUTO) 8.7 10^3/uL (1.7-8.2); BASOPHILS % (AUTO) 0.6 % (0-2); EOSINOPHILS % (AUTO) 2.6 % (0-6); HEMATOCRIT 43.1 % (37.9-51.0); HEMOGLOBIN 14.1 g/dL (13.5-17.0); LYMPHOCYTES % (AUTO) 17.3 % (13-45); MEAN CORPUSCULAR HEMOGLOBIN 27.9 pg (27.0-33.4); MEAN CORPUSCULAR HGB CONC 32.7 g/dL (32.0-36.0); MEAN CORPUSCULAR VOLUME 86 fl (80-97); MONOCYTES % (AUTO) 8.6 % (3-13); PLATELET COUNT 201 10^3/uL (150-450); RED BLOOD COUNT 5.04 10^6/uL (4.35-5.55); RED CELL DISTRIBUTION WIDTH 13.8 % (11.5-14.0); SEGMENTED NEUTROPHILS % (AUTO) 70.9 % (42-78); TOTAL CELLS COUNTED % (AUTO) 100 %; WHITE BLOOD COUNT 12.2 10^3/uL (4.0-10.5)
[2018-03-03 17:00] LABS: ALANINE AMINOTRANSFERASE 21 U/L (21-72); ALBUMIN 4.1 g/dL (3.5-5.0); ALKALINE PHOSPHATASE 65 U/L (38-126); ANION GAP 12 (5-19); ASPARTATE AMINO TRANSFERASE 14 U/L (17-59); BILIRUBIN,DIRECT 0.5 mg/dL (0.0-0.4); BILIRUBIN,TOTAL 0.6 mg/dL (0.2-1.3); BLOOD UREA NITROGEN 34 mg/dL (7-20); CALCIUM 9.2 mg/dL (8.4-10.2); CARBON DIOXIDE 21 mmol/L (22-30); CHLORIDE 105 mmol/L (98-107); GLUCOSE 175 mg/dL (75-110); POTASSIUM 4.7 mmol/L (3.6-5.0); SODIUM 137.9 mmol/L (137-145)
[2018-03-03 17:08] LABS: APPEARANCE,URINE CLOUDY; BILIRUBIN,URINE NEGATIVE (NEGATIVE); COLOR,URINE YELLOW; GLUCOSE, URINE 50 mg/dL (NEGATIVE); KETONES,URINE NEGATIVE (NEGATIVE); LEUKOCYTE ESTERASE,URINE LARGE (NEGATIVE); NITRITE,URINE POSITIVE (NEGATIVE); PROTEIN,URINE 100 mg/dL (NEGATIVE); URINE SPECIFIC GRAVITY 1.017
[2018-03-03] MEDS ORDERED: PROCHLORPERAZINE EDISYLATE INJ 10 MG/2 ML VIAL IM ONE (17:13)
[2018-03-03] MEDS ORDERED: PROCHLORPERAZINE EDISYLATE INJ 10 MG/2 ML VIAL IV ONE (17:16)
[2018-03-03] MEDS ORDERED: NORMAL SALINE 1000 ML 1,000 ML IV ONE (17:16)
--- NOTE | 2018-03-03 17:52 | ER Document Report ---
ED GI/ - General Mode of Arrival: Ambulatory Information source: Patient TRAVEL OUTSIDE OF THE [place] IN LAST 30 DAYS: No <JEVON JEROME - Last Filed: 03/04/18 20:13> <HORACIO PAULSON - Last Filed: 03/04/18 22:03> - General Chief Complaint: Urinary Problem Stated Complaint: ABDOMEN PAIN Time Seen by Provider: 03/03/18 16:11 Notes: 57-year-old male who presents to the emergency department today with complaints of hematuria. Patient states he has noticed increasing blood in his urine for the last 2 days. Patient states he went to an urgent care this evening who then sent him here secondary to bacteria in his urine along with the blood. Patient states he has had an associated headache and lower abdominal pain. Patient states he is not sexually active and does not have any discharge from the penis. Patient denies a history of BPH or kidney abnormality. Patient states it does not hurt to defecate. Patient denies flank pain. (JEVON JEROME) - Related Data Allergies/Adverse Reactions: hydromorphone HCl [From Dilaudid] Allergy (Verified 03/03/18 14:40) Past Medical History - General Information source: Patient - Social History Smoking Status: Never Smoker Cigarette use (# per day): No Frequency of alcohol use: None Drug Abuse: None Lives with: Family Family History: Reviewed & Not Pertinent, Arthritis, COPD, CVA, DM, Hyperlipidemia, Hypertension, Malignancy, Thyroid Disfunction Patient has suicidal ideation: No Patient has homicidal ideation: No - Past Medical History Cardiac Medical History: Reports: Hx Hypercholesterolemia, Hx Hypertension, Hx Peripheral Vascular Disease Pulmonary Medical History: Reports: Hx Asthma, Hx Pneumonia Neurological Medical History: Reports: Hx Cerebrovascular Accident Endocrine Medical History: Reports: Hx Diabetes Mellitus Type 2 Renal/ Medical History: Reports: Hx Benign Prostatic Hyperplasia, Hx Renal Insufficiency Malignancy Medical History: GI Medical History: Reports: Hx Gastroesophageal Reflux Disease, Hx Hiatal Hernia Musculoskeletal Medical History: Reports Hx Arthritis - hands, Reports Hx Musculoskeletal Deformity, Reports Hx Musculoskeletal Trauma Skin Medical History: Reports Hx Cellulitis Psychiatric Medical History: Reports: Hx Depression Traumatic Medical History: Reports: Hx Fractures - Abdomen ankle Past Surgical History: Reports: Hx Inguinal Hernia, Hx Orthopedic Surgery - R BKA, Hx Vascular Surgery - Femoral stent left leg - Immunizations Hx Diphtheria, Pertussis, Tetanus Vaccination: Yes - 2008 <JEVON JEROME - Last Filed: 03/04/18 20:13> Review of Systems - Review of Systems Constitutional: No symptoms reported EENT: No symptoms reported Cardiovascular: No symptoms reported Respiratory: No symptoms reported Gastrointestinal: See HPI, Abdominal pain Genitourinary: See HPI, Burning, Dysuria, Hematuria Male Genitourinary: No symptoms reported Musculoskeletal: No symptoms reported Skin: No symptoms reported Hematologic/Lymphatic: No symptoms reported Neurological/Psychological: See HPI, Headaches -: Yes All other systems reviewed and negative <JEVON JEROME - Last Filed: 03/04/18 20:13> Physical Exam <JEVON JEROME - Last Filed: 03/04/18 20:13> <HORACIO PAULSON - Last Filed: 03/04/18 22:03> - Vital signs Vitals: Temp Pulse Resp BP Pulse Ox 98.7 F 89 16 127/75 H 97 03/03/18 14:42 03/03/18 14:42 03/03/18 14:42 03/03/18 14:42 03/03/18 14:42 - Notes Notes: Physical Exam: General: Alert, appears well. HEENT: Normocephalic. Atraumatic. PERRL. Extraocular movements intact. Oropharynx clear. Neck: Supple. Non-tender. Respiratory: No respiratory distress. Clear and equal breath sounds bilaterally. Cardiovascular: Regular rate and rhythm. Abdominal: Suprapubic abdominal tenderness with palpation. No distension. Normal Bowel Sounds. Back: Non-tender. No deformity or step off. Extremities: Moves all four extremities. Upper extremities: Normal inspection. Normal ROM. Lower extremities: Normal inspection. No edema. Normal ROM. Neurological: Normal cognition. AAOx4. Normal speech. Psychological: Normal affect. Normal Mood. Skin: Warm. Dry. Normal color. (JEVON JEROME) Course - Laboratory Result Diagrams: 03/03/18 16:26 03/03/18 16:26 <JEVON JEROME - Last Filed: 03/04/18 20:13> - Laboratory Result Diagrams: 03/03/18 16:26 03/03/18 16:26 <HORACIO PAULSON - Last Filed: 03/04/18 22:03> - Re-evaluation Re-evalutation: 03/03/18 17:53 Patient's labs show urinary tract infection and mildly increased creatinine. Upon further discussion patient states that he had a urinary tract infection that was treated approximately 3 months ago. Will perform scan of abdomen pelvis to ensure patient does not have kidney stones which are causing recurrent urinary tract infections even though he has no abdominal or flank pain at this time. 03/03/18 18:02 CT abdomen pelvis shows no concerning findings no acute processes. Will discharge patient with Keflex and due to age will provide 1 g of ceftriaxone prior to discharge. Patient was also provided fluids. He is to follow-up with his primary care physician early next week for kidney function recheck. Return precautions provided. Also advised patient to drink plenty of fluids as this is the second time he had a urinary tract infection with no suggestive findings to cause these recurrent infections 03/03/18 18:04 Culture was also ordered prior to discharge to ensure proper sensitivities to Keflex (HORACIO PAULSON) - Vital Signs Vital signs: Temp Pulse Resp BP Pulse Ox 98.2 F 87 20 132/74 H 97 03/03/18 19:49 03/03/18 19:49 03/03/18 19:49 03/03/18 19:49 03/03/18 19:49 - Laboratory Laboratory results interpreted by me: 03/03/18 03/03/18 03/03/18 16:26 16:26 16:26 WBC 12.2 H Absolute Neutrophils 8.7 H Carbon Dioxide 21 L BUN 34 H Creatinine 2.32 H Est GFR ( Amer) 35 L Est GFR (Non-Af Amer) 29 L Glucose 175 H Direct Bilirubin 0.5 H AST 14 L Urine Protein 100 H Urine Glucose (UA) 50 H Urine Blood MODERATE H Urine Nitrite POSITIVE H Urine Urobilinogen 2.0 H Ur Leukocyte Esterase LARGE H Discharge <JEVON JEROME - Last Filed: 03/04/18 20:13> <HORACIO PAULSON - Last Filed: 03/04/18 22:03> - Discharge Clinical Impression: UTI (urinary tract infection) Qualifiers: Urinary tract infection type: site unspecified Hematuria presence: with hematuria Qualified Code(s): N39.0 - Urinary tract infection, site not specified Condition: Good Disposition: HOME, SELF-CARE Instructions: Cephalexin ([facility]), Urinary Tract Infection ([facility]) Additional Instructions: You need to follow-up with your primary care physician early next week for kidney function recheck. Please take all medications provided today. You will be called in 2-3 day if your urine culture shows that you need a different medication for your urinary tract infection. Please return to the emergency department for any concerns Prescriptions: Cephalexin Monohydrate [Keflex 500 mg Capsule] 500 mg PO ASDIR PRN 5 Days #14 capsule PRN Reason: Referrals: JHONATAN LI, [facility] [Primary Care Provider] - Follow up in 3-5 days (For re- evaluation and kidney function check) Scribe Attestation: 03/04/18 22:03 I personally performed the services described in the documentation, reviewed and edited the documentation which was dictated to the scribe in my presence, and it accurately records my words and actions. (HORACIO PAULSON) Scribe Documentation - Scribe Written by Italoe:: Glynn Landis, 03/03/20181999 acting as scribe for :: Fabián <JEVON JEROME - Last Filed: 03/04/18 20:13>
[2018-03-03] MEDS ORDERED: CEFTRIAXONE 1 GM/D5W RTU 50 ML IV ONE (17:54)
--- NOTE | 2018-03-03 17:59 | RADIOLOGY REPORT (SQ) ---
EXAM DESCRIPTION: CT ABD/PELVIS NO ORAL OR IV COMPLETED DATE/TIME: 03/03/2018 5:50 pm REASON FOR STUDY: UTI, eval for stones COMPARISON: Renal ultrasound dated 12/25/2017 TECHNIQUE: CT scan of the abdomen and pelvis performed without intravenous or oral contrast. Images reviewed with lung, soft tissue, and bone windows. Reconstructed coronal and sagittal MPR images revi ewed. All images stored on PACS. All CT scanners at this facility use dose modulation, iterative reconstruction, and/or weight based d osing when appropriate to reduce radiation dose to as low as reasonably achievable (ALARA). [facility]: Dose Right [facility]: CareDose [facility]: Dose Right [facility]: Teradose 4D [facility]: Imagistx RADIATION DOSE: mGy. LIMITATIONS: None. FINDINGS: LOWER CHEST: No significant findings. No nodules or infiltrates. NON-CONTRASTED LIVER, SPLEEN, ADRENALS: Evaluation limited by lack of IV contrast. No identified sign ificant masses. PANCREAS: No masses. No peripancreatic inflammatory changes. GALLBLADDER: No identified stones by CT criteria. No inflammatory changes to suggest cholecystitis. RIGHT KIDNEY AND URETER: No suspicious masses. Assessment limited by lack of IV contrast. No signif icant calcifications. No hydronephrosis or hydroureter. LEFT KIDNEY AND URETER: No suspicious masses. Assessment limited by lack of IV contrast. No signifi cant calcifications. No hydronephrosis or hydroureter. AORTA AND RETROPERITONEUM: No aneurysm. No retroperitoneal masses or adenopathy. There is a left com mon iliac artery stent in place. BOWEL AND PERITONEAL CAVITY: The stomach is distended with food debris. No obstruction. No inflamma tory changes. APPENDIX: Normal. PELVIS, BLADDER, AND ABDOMINAL WALL:Prior hernia repair in the left lower quadrant. BONES: No significant findings. OTHER: No other significant finding. IMPRESSION: NO SIGNIFICANT OR ACUTE PROCESS IN THE ABDOMEN OR PELVIS. COMMENT: Quality ID # [id number]: Final reports with documentation of one or more dose reduction techniques (e.g., Automated exposure control, adjustment of the mA and/or kV according to patient size, use of iterative reconstruction technique) TECHNICAL DOCUMENTATION: JOB ID: [id number] [employer]- All Rights Reserved Reading location - IP/workstation name: [email or web address]
[2018-03-03] MEDS ORDERED: CEFTRIAXONE SODIUM 1,000 MG in NORMAL SALINE 50 ML IV ONE (18:30)
[2018-03-03 19:49] VITALS: BP 132/74
== END 2018-03-03 19:50 | disposition home or self-care (01) ==
LOC: ER 14:38
DX: N39.0 Urinary tract infection, site not specified (principal); R31.0 Gross hematuria; R10.30 Lower abdominal pain, unspecified; R51 Headache; Z88.5 Allergy status to narcotic agent; E11.51 Type 2 diabetes mellitus with diabetic peripheral angiopathy without gangrene; I10 Essential (primary) hypertension; J45.909 Unspecified asthma, uncomplicated
CPT/HCPCS: 99284; 96361; 96375; 96365; 36415; 87086; 85025; 87088; 80053; 81001; 87186; 74176; J0780; J0696

== ENCOUNTER → 2018-06-21 | Outpatient (CLI) | payer MEDICARE, MEDICAID ==
[2018-06-21 07:08] LABS: ABSOLUTE BASOPHILS # (AUTO) 0.1 10^3/uL (0.0-0.2); ABSOLUTE EOSINOPHILS # (AUTO) 0.5 10^3/uL (0.0-0.6); ABSOLUTE LYMPHOCYTES (AUTO) 2.8 10^3/uL (0.5-4.7); ABSOLUTE MONOCYTES (AUTO) 0.8 10^3/uL (0.1-1.4); ABSOLUTE NEUT (AUTO) 4.3 10^3/uL (1.7-8.2); BASOPHILS % (AUTO) 1.2 % (0-2); EOSINOPHILS % (AUTO) 5.8 % (0-6); HEMATOCRIT 42.7 % (37.9-51.0); HEMOGLOBIN 14.3 g/dL (13.5-17.0); LYMPHOCYTES % (AUTO) 32.9 % (13-45); MEAN CORPUSCULAR HEMOGLOBIN 28.1 pg (27.0-33.4); MEAN CORPUSCULAR HGB CONC 33.4 g/dL (32.0-36.0); MEAN CORPUSCULAR VOLUME 84 fl (80-97); MONOCYTES % (AUTO) 9.2 % (3-13); PLATELET COUNT 203 10^3/uL (150-450); RED BLOOD COUNT 5.07 10^6/uL (4.35-5.55); RED CELL DISTRIBUTION WIDTH 13.4 % (11.5-14.0); SEGMENTED NEUTROPHILS % (AUTO) 50.9 % (42-78); TOTAL CELLS COUNTED % (AUTO) 100 %; WHITE BLOOD COUNT 8.4 10^3/uL (4.0-10.5)
[2018-06-21 07:45] LABS: ALBUMIN 4.2 g/dL (3.5-5.0); ALKALINE PHOSPHATASE 78 U/L (38-126); ANION GAP 8 (5-19); ASPARTATE AMINO TRANSFERASE 14 U/L (17-59); BILIRUBIN,DIRECT 0.3 mg/dL (0.0-0.4); BILIRUBIN,TOTAL 0.4 mg/dL (0.2-1.3); BLOOD UREA NITROGEN 35 mg/dL (7-20); CALCIUM 9.3 mg/dL (8.4-10.2); CARBON DIOXIDE 24 mmol/L (22-30); CHLORIDE 109 mmol/L (98-107); GLUCOSE 197 mg/dL (75-110); POTASSIUM 4.8 mmol/L (3.6-5.0); SODIUM 141.3 mmol/L (137-145); TOTAL PROTEIN 6.7 g/dL (6.3-8.2); TRIGLYCERIDES 222 mg/dL (<150)
[2018-06-21 07:56] LABS: DIRECT LDL 146 mg/dL (<100)
[2018-06-21 07:57] LABS: VLDL CHOLESTEROL 44.4 mg/dL (10-31)
[2018-06-21 08:05] LABS: ALANINE AMINOTRANSFERASE 31 U/L (21-72)
[2018-06-22 12:38] LABS: CREATININE URINE 125.7 mg/dL (Not Estab.); MICROALBUMIN URINE 119.9 ug/mL (Not Estab.)
== END ==
LOC: LAB 06:54
PROVIDERS: ATTEND Family Medicine Geriatric Medicine
DX: E11.8 Type 2 diabetes mellitus with unspecified complications (principal); I10 Essential (primary) hypertension; Z79.899 Other long term (current) drug therapy
CPT/HCPCS: 36415; 80053; 80061; 82043; 82570; 83036; 84443; 85025

== ENCOUNTER → 2018-07-28 | Outpatient (CLI) | payer MEDICARE, MEDICAID ==
--- NOTE | 2018-07-28 17:43 | RADIOLOGY REPORT (SQ) ---
EXAM DESCRIPTION: CERV SP 4 OR 5 VIEWS COMPLETED DATE/TIME: 07/28/2018 5:20 pm REASON FOR STUDY: M54.2 CERVICALGIA M75.102 UNSP ROTATR-CUFF TEAR/RUPTR OF LEFT SHOULDER, NOT M54.2 CERVICALGIA M75.102 UNSP ROTATR-CUFF TEAR/RUPTR OF LEFT SHOULDER, NOT TR N18.3 CHRONIC KIDNEY DISE ASE, STAGE 3 (MODERATE) COMPARISON: None. NUMBER OF VIEWS: Five views. TECHNIQUE: AP, lateral, obliques and odontoid radiographic images acquired of the cervical spine. LIMITATIONS: None. FINDINGS: MINERALIZATION: Normal. ALIGNMENT: Anatomic. VERTEBRAE: Vertebral bodies of normal height. DISCS: C5-6 disc space is narrowed with anterior and posterior osteophytes. FORAMINA: No osteophytes or foraminal narrowing. LATERAL AND POSTERIOR ELEMENTS: Facets, lateral masses and spinous processes without significant find ings. HARDWARE: None in the spine. SOFT TISSUES: No masses or calcifications. Lung apices clear. OTHER: No other significant finding. IMPRESSION: Degenerative disc disease and spondylosis. TECHNICAL DOCUMENTATION: JOB ID: [id number] [employer]- All Rights Reserved Reading location - IP/workstation name: [email or web address]
--- NOTE | 2018-07-28 17:44 | RADIOLOGY REPORT (SQ) ---
EXAM DESCRIPTION: SHOULDER LEFT 2 OR MORE VIEWS COMPLETED DATE/TIME: 07/28/2018 5:20 pm REASON FOR STUDY: M54.2 CERVICALGIA M75.102 UNSP ROTATR-CUFF TEAR/RUPTR OF LEFT SHOULDER, NOT M54.2 CERVICALGIA M75.102 UNSP ROTATR-CUFF TEAR/RUPTR OF LEFT SHOULDER, NOT TR N18.3 CHRONIC KIDNEY DISE ASE, STAGE 3 (MODERATE) COMPARISON: None. NUMBER OF VIEWS: Three views. TECHNIQUE: Internal rotation, external rotation, and Y view images acquired of the left shoulder. LIMITATIONS: None. FINDINGS: MINERALIZATION: Normal. BONES: No acute fracture or dislocation. No worrisome bone lesions. JOINTS: No dislocation. VISUALIZED LUNGS AND RIBS: No pneumothorax. No rib fracture. SOFT TISSUES: No radiopaque foreign body. OTHER: No other significant finding. IMPRESSION: NEGATIVE STUDY OF THE LEFT SHOULDER. NO RADIOGRAPHIC EVIDENCE OF ACUTE INJURY. TECHNICAL DOCUMENTATION: JOB ID: [id number] [employer]- All Rights Reserved Reading location - IP/workstation name: [email or web address]
[2018-07-28 18:01] LABS: ALANINE AMINOTRANSFERASE 10 U/L (21-72); CHOLESTEROL 185.62 mg/dL (0-200); TRIGLYCERIDES 186 mg/dL (<150)
[2018-07-28 18:12] LABS: DIRECT LDL 107 mg/dL (<100)
[2018-07-28 18:15] LABS: VLDL CHOLESTEROL 37.2 mg/dL (10-31)
== END ==
LOC: RAD 16:54
PROVIDERS: ATTEND Family Medicine Geriatric Medicine
DX: N18.3 Chronic kidney disease, stage 3 (moderate) (principal); E78.5 Hyperlipidemia, unspecified; M54.2 Cervicalgia; M75.102 Unspecified rotator cuff tear or rupture of left shoulder, not specified as traumatic
CPT/HCPCS: 36415; 72050; 80061; 82306; 84460

== ENCOUNTER → 2018-08-04 | Outpatient (CLI) | payer MEDICARE, MEDICAID ==
[2018-08-04 17:11] LABS: ANION GAP 8 (5-19); BLOOD UREA NITROGEN 23 mg/dL (7-20); CALCIUM 9.5 mg/dL (8.4-10.2); CARBON DIOXIDE 24 mmol/L (22-30); CHLORIDE 108 mmol/L (98-107); GLUCOSE 158 mg/dL (75-110); POTASSIUM 4.4 mmol/L (3.6-5.0); SODIUM 139.8 mmol/L (137-145)
== END ==
LOC: LAB 16:41
PROVIDERS: ATTEND Internal Medicine Nephrology
DX: N18.2 Chronic kidney disease, stage 2 (mild) (principal)
CPT/HCPCS: 36415; 80048

== ENCOUNTER → 2018-12-21 | Outpatient (CLI) | payer MEDICARE, MEDICAID ==
[2018-12-21 14:41] LABS: APPEARANCE,URINE CLEAR; BILIRUBIN,URINE NEGATIVE (NEGATIVE); COLOR,URINE YELLOW; GLUCOSE, URINE NEGATIVE (NEGATIVE); KETONES,URINE NEGATIVE (NEGATIVE); LEUKOCYTE ESTERASE,URINE NEGATIVE (NEGATIVE); NITRITE,URINE NEGATIVE (NEGATIVE); PROTEIN,URINE 100 mg/dL (NEGATIVE); URINE SPECIFIC GRAVITY 1.014
[2018-12-21 14:43] LABS: HEMATOCRIT 40.7 % (37.9-51.0); HEMOGLOBIN 13.1 g/dL (13.5-17.0); MEAN CORPUSCULAR HEMOGLOBIN 27.1 pg (27.0-33.4); MEAN CORPUSCULAR HGB CONC 32.2 g/dL (32.0-36.0); MEAN CORPUSCULAR VOLUME 84 fl (80-97); PLATELET COUNT 203 10^3/uL (150-450); RED BLOOD COUNT 4.84 10^6/uL (4.35-5.55); RED CELL DISTRIBUTION WIDTH 14.1 % (11.5-14.0); WHITE BLOOD COUNT 8.2 10^3/uL (4.0-10.5)
[2018-12-21 15:02] LABS: ANION GAP 7 (5-19); BLOOD UREA NITROGEN 20 mg/dL (7-20); CALCIUM 9.1 mg/dL (8.4-10.2); CARBON DIOXIDE 25 mmol/L (22-30); CHLORIDE 108 mmol/L (98-107); GLUCOSE 139 mg/dL (75-110); POTASSIUM 4.6 mmol/L (3.6-5.0)
[2018-12-22 12:36] LABS: CREATININE URINE 147.6 mg/dL (Not Estab.)
== END ==
LOC: OD 13:30
PROVIDERS: ATTEND Internal Medicine Nephrology
DX: N17.0 Acute kidney failure with tubular necrosis (principal); I12.9 Hypertensive chronic kidney disease with stage 1 through stage 4 chronic kidney disease, or unspecified chronic kidney disease; N18.3 Chronic kidney disease, stage 3 (moderate); E11.22 Type 2 diabetes mellitus with diabetic chronic kidney disease; R80.9 Proteinuria, unspecified; E83.52 Hypercalcemia
CPT/HCPCS: 36415; 80048; 81001; 82043; 82570; 85027

== ENCOUNTER → 2019-01-25 | Outpatient (CLI) | payer MEDICARE, MEDICAID ==
[2019-01-25 08:27] LABS: ABSOLUTE BASOPHILS # (AUTO) 0.1 10^3/uL (0.0-0.2); ABSOLUTE EOSINOPHILS # (AUTO) 0.5 10^3/uL (0.0-0.6); ABSOLUTE LYMPHOCYTES (AUTO) 2.1 10^3/uL (0.5-4.7); ABSOLUTE MONOCYTES (AUTO) 0.7 10^3/uL (0.1-1.4); ABSOLUTE NEUT (AUTO) 4.1 10^3/uL (1.7-8.2); BASOPHILS % (AUTO) 1.3 % (0-2); EOSINOPHILS % (AUTO) 6.8 % (0-6); HEMATOCRIT 40.7 % (37.9-51.0); HEMOGLOBIN 13.4 g/dL (13.5-17.0); LYMPHOCYTES % (AUTO) 28.6 % (13-45); MEAN CORPUSCULAR HEMOGLOBIN 27.4 pg (27.0-33.4); MEAN CORPUSCULAR HGB CONC 32.9 g/dL (32.0-36.0); MEAN CORPUSCULAR VOLUME 83 fl (80-97); MONOCYTES % (AUTO) 9.1 % (3-13); PLATELET COUNT 244 10^3/uL (150-450); RED BLOOD COUNT 4.89 10^6/uL (4.35-5.55); RED CELL DISTRIBUTION WIDTH 14.2 % (11.5-14.0); SEGMENTED NEUTROPHILS % (AUTO) 54.2 % (42-78); TOTAL CELLS COUNTED % (AUTO) 100 %; WHITE BLOOD COUNT 7.5 10^3/uL (4.0-10.5)
[2019-01-25 09:04] LABS: ANION GAP 6 (5-19); BLOOD UREA NITROGEN 22 mg/dL (7-20); CALCIUM 9.4 mg/dL (8.4-10.2); CARBON DIOXIDE 25 mmol/L (22-30); CHLORIDE 109 mmol/L (98-107); CHOLESTEROL 200.68 mg/dL (0-200); GLUCOSE 135 mg/dL (75-110); POTASSIUM 4.8 mmol/L (3.6-5.0); TRIGLYCERIDES 98 mg/dL (<150)
[2019-01-25 09:15] LABS: DIRECT LDL 153 mg/dL (<100)
--- NOTE | 2019-01-25 14:37 | RADIOLOGY REPORT (SQ) ---
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 TECHNIQUE: Noncontrast scanning from skull base through lung apices with review of bone, soft tissue and lung windows. Reconstructed coronal and sagittal MPR images reviewed. All images stored on PAC S. All CT scanners at this facility use dose modulation, iterative reconstruction, and/or weight based d osing when appropriate to reduce radiation dose to as low as reasonably achievable (ALARA). [facility]: Dose Right [facility]: CareDose [facility]: Dose Right [facility]: Teradose 4D [facility]: Pro Hoop Strength RADIATION DOSE: mGy. LIMITATIONS: None. FINDINGS: SKULL BASE: Intact. MAJOR SALIVARY GLANDS: No solid or cystic masses. No inflammatory changes. LYMPHADENOPATHY: There are some small submental nodes that are subcentimeter in size. MUCOSAL MASSES OR ASYMMETRY: The tonsils are prominent. There is no evidence of peritonsillar absces s. LARYNX/CORDS: No abnormal findings. LUNG APICES: Clear. BONES: Lower cervical degenerative disc disease and spondylosis. THYROID: Normal size. No masses. PARANASAL SINUSES: Clear. OTHER: No other significant finding. IMPRESSION: Prominent tonsils. There is no peritonsillar abscess. TECHNICAL DOCUMENTATION: JOB ID: [id number] Quality ID # [id number]: Final reports with documentation of one or more dose reduction techniques (e.g., Au tomated exposure control, adjustment of the mA and/or kV according to patient size, use of iterative reconstruction technique) 2010 [employer]- All Rights Reserved Reading location - IP/workstation name: [email or web address]
== END ==
LOC: RAD 07:49
PROVIDERS: ATTEND Family Medicine Geriatric Medicine
DX: E11.21 Type 2 diabetes mellitus with diabetic nephropathy (principal); E78.5 Hyperlipidemia, unspecified; Z79.899 Other long term (current) drug therapy
CPT/HCPCS: 36415; 70490; 80048; 80061; 83036; 84460; 85025

== ENCOUNTER 2019-03-21 10:34 | Emergency (ER) | payer MEDICARE, MEDICAID ==
[2019-03-21 10:41] VITALS: BP 162/86
--- NOTE | 2019-03-21 11:23 | ER Document Report ---
HPI - HPI Time Seen by Provider: 03/21/19 10:49 Context: Patient is a 4-year-old male who presents the emergency department with a chief complaint of left face pain. Patient states that he has "bumps" on the left side of his face and on his gums. He has had these for the past few weeks. 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 Patient was treated with Keflex by his primary care provider, but the patient states that he has not had any relief in his symptoms. Denies any fever, body aches, chills or any other symptoms. - CONSTITUTIONAL Constitutional: DENIES: Fever, Chills - EENT EENT: DENIES: Sore Throat, Ear Pain, Nasal Drainage-Clear, Nasal Drainage- Purulent, Congestion, Eye problems - NEURO Neurology: DENIES: Headache - CARDIOVASCULAR Cardiovascular: DENIES: Chest pain - RESPIRATORY Respiratory: DENIES: Trouble Breathing, Coughing - GASTROINTESTINAL Gastrointestinal: DENIES: Abdominal Pain, Nausea, Patient vomiting - REPRODUCTIVE Reproductive: DENIES: : - MUSCULOSKELETAL Musculoskeletal: DENIES: Extremity pain - DERM Skin Color: Normal Skin Problems: Pustule - Multiple to face Past Medical History - Social History Smoking Status: Current Every Day Smoker Family History: Reviewed & Not Pertinent, Arthritis, COPD, CVA, DM, Hyperlipidemia, Hypertension, Malignancy, Thyroid Disfunction - Past Medical History Cardiac Medical History: Reports: Hx Hypercholesterolemia, Hx Hypertension, Hx Peripheral Vascular Disease Pulmonary Medical History: Reports: Hx Asthma, Hx Pneumonia Neurological Medical History: Reports: Hx Cerebrovascular Accident. Denies: Hx Seizures, Hx Parkinson's Disease Endocrine Medical History: Reports: Hx Diabetes Mellitus Type 2 Renal/ Medical History: Reports: Hx Benign Prostatic Hyperplasia, Hx Renal Insufficiency. Denies: Hx Peritoneal Dialysis Malignancy Medical History: GI Medical History: Reports: Hx Gastroesophageal Reflux Disease, Hx Hiatal Hernia. Denies: Hx Pancreatitis Musculoskeletal Medical History: Reports Hx Arthritis - hands, Reports Hx Musculoskeletal Deformity, Reports Hx Musculoskeletal Trauma, Denies Hx Systemic Lupus Erythematosus Skin Medical History: Reports Hx Cellulitis Psychiatric Medical History: Reports: Hx Depression Traumatic Medical History: Reports: Hx Fractures - Abdomen ankle Infectious Medical History: Denies: Hx HIV Past Surgical History: Reports: Hx Inguinal Hernia, Hx Orthopedic Surgery - R BKA, Hx Vascular Surgery - Femoral stent left leg - Immunizations Hx Diphtheria, Pertussis, Tetanus Vaccination: Yes - 2008 Vertical Provider Document - CONSTITUTIONAL Agree With Documented VS: Yes Exam Limitations: No Limitations General Appearance: No Apparent Distress - INFECTION CONTROL TRAVEL OUTSIDE OF THE [place] IN LAST 30 DAYS: No - HEENT HEENT: Atraumatic, Normocephalic, PERRLA. negative: Conjuctival Injection - NECK Neck: Normal Inspection - RESPIRATORY Respiratory: negative: Breath Sounds Normal, No Respiratory Distress - CARDIOVASCULAR Cardiovascular: Regular Rate - MUSCULOSKELETAL/EXTREMETIES Musculoskeletal/Extremeties: FROM - NEURO Level of Consciousness: Awake, Alert, Appropriate Motor/Sensory: No Motor Deficit, No Sensory Deficit - DERM Integumentary: Warm, Dry, Abscess - Multiple face, deep Course - Re-evaluation Re-evalutation: 03/21/19 Patient has multiple pustules to his face. Since he has too many, I am referring him to dermatology. He will be started on clindamycin, as Keflex does not cover MRSA and the patient has a history of MRSA. I have advised him to follow-up with his primary care provider also. A very low suspicion for necrotizing fasciitis, or any life-threatening etiology at this time. Follow-up precautions were given. Verbal discharge instructions were given to the patient. They verbalized understanding. They are stable for discharge. - Vital Signs Vital signs: Temp Pulse Resp BP Pulse Ox 98.2 F 85 16 162/86 H 98 03/21/19 10:39 03/21/19 10:39 03/21/19 10:39 03/21/19 10:39 03/21/19 10:39 Discharge - Discharge Clinical Impression: Abscess of face Condition: Stable Disposition: HOME, SELF-CARE Additional Instructions: You were seen today in the emergency department for facial pain due to pustules in your face. Please follow-up with 1 of the dermatologists below in regards to this visit. You are also being started on clindamycin. Clindamycin does cover MRSA since you have a history of MRSA. Please also follow-up with your primary care provider. If you develop body aches, fever, or worsening symptoms, please return to the emergency department. [facility] [address] [facility] [address] [place] Prescriptions: Clindamycin HCl [Cleocin 150 mg Capsule] 300 mg PO Q6 7 Days #56 capsule Referrals: TRISTON BARCENAS MD [Primary Care Provider] - Follow up as needed
== END 2019-03-21 11:29 | disposition home or self-care (01) ==
LOC: ER 10:34
DX: L02.01 Cutaneous abscess of face (principal); Z86.14 Personal history of Methicillin resistant Staphylococcus aureus infection; E11.51 Type 2 diabetes mellitus with diabetic peripheral angiopathy without gangrene; I10 Essential (primary) hypertension; F17.200 Nicotine dependence, unspecified, uncomplicated; J45.909 Unspecified asthma, uncomplicated
CPT/HCPCS: 99283

== ENCOUNTER → 2019-03-21 | Outpatient (CLI) | payer MEDICARE, MEDICAID ==
[2019-03-21 15:19] LABS: ABSOLUTE BASOPHILS # (AUTO) 0.1 10^3/uL (0.0-0.2); ABSOLUTE EOSINOPHILS # (AUTO) 0.5 10^3/uL (0.0-0.6); ABSOLUTE LYMPHOCYTES (AUTO) 2.3 10^3/uL (0.5-4.7); ABSOLUTE MONOCYTES (AUTO) 0.6 10^3/uL (0.1-1.4); ABSOLUTE NEUT (AUTO) 4.7 10^3/uL (1.7-8.2); BASOPHILS % (AUTO) 1.3 % (0-2); EOSINOPHILS % (AUTO) 5.9 % (0-6); HEMATOCRIT 41.7 % (37.9-51.0); HEMOGLOBIN 13.4 g/dL (13.5-17.0); LYMPHOCYTES % (AUTO) 27.8 % (13-45); MEAN CORPUSCULAR HEMOGLOBIN 27.2 pg (27.0-33.4); MEAN CORPUSCULAR HGB CONC 32.1 g/dL (32.0-36.0); MEAN CORPUSCULAR VOLUME 85 fl (80-97); MONOCYTES % (AUTO) 7.6 % (3-13); PLATELET COUNT 205 10^3/uL (150-450); RED BLOOD COUNT 4.92 10^6/uL (4.35-5.55); SEGMENTED NEUTROPHILS % (AUTO) 57.4 % (42-78); TOTAL CELLS COUNTED % (AUTO) 100 %; WHITE BLOOD COUNT 8.2 10^3/uL (4.0-10.5)
[2019-03-21 15:41] LABS: CHOLESTEROL 185.88 mg/dL (0-200); TRIGLYCERIDES 171 mg/dL (<150)
[2019-03-21 15:52] LABS: DIRECT LDL 114 mg/dL (<100)
[2019-03-21 15:53] LABS: VLDL CHOLESTEROL 34.2 mg/dL (10-31)
== END ==
LOC: LAB 15:02
PROVIDERS: ATTEND Family Medicine Geriatric Medicine
DX: E78.5 Hyperlipidemia, unspecified (principal); R79.89 Other specified abnormal findings of blood chemistry; Z79.899 Other long term (current) drug therapy
CPT/HCPCS: 36415; 80061; 84460; 85025

== ENCOUNTER 2019-07-29 16:25 | Emergency (ER) | payer MEDICARE, MEDICAID ==
[2019-07-29 16:43] VITALS: BP 111/74
--- NOTE | 2019-07-29 17:15 | ER Document Report ---
ED Medical Screen (RME) - General Chief Complaint: Abdominal Pain Stated Complaint: SHORTNESS OF BREATH Time Seen by Provider: 07/29/19 17:11 Primary Care Provider: TRISTON BARCENAS MD [Primary Care Provider] - Follow up as needed Notes: HPI: 59-year-old male who is a diabetic with a history of right lower leg amputation presenting for evaluation of generalized abdominal pain that is been constant for 2 days describes it as a sharp crampy sensation. Has had slight nausea no fever no dysuria. States that he does feel like the discomfort seems to radiate down from the lower abdomen into the upper abdomen and chest. Has had slight cough for 2 days. I have greeted and performed a rapid initial assessment of this patient. A comprehensive ED assessment and evaluation of the patient, analysis of test results and completion of the medical decision making process will be conducted by additional ED providers PHYSICAL EXAMINATION: GENERAL: Well-appearing, well-nourished and in mild acute distress. HEAD: Atraumatic, normocephalic. EYES: sclera anicteric, conjunctiva are normal. ENT: Moist mucous membranes. NECK: Normal range of motion LUNGS: Normal work of breathing, clear to auscultation HEART: 2+ radial pulses bilaterally, regular rate and rhythm ABD: limited by positioning for exam in triage. No definitive reproducible pain on palpation EXTREMITIES: no pitting or edema. No cyanosis. NEUROLOGICAL: No focal neurological deficits. Moves all extremities spontaneously and on command. PSYCH: Normal mood, normal affect. SKIN: Warm, Dry, normal turgor, no rashes or lesions noted. TRAVEL OUTSIDE OF THE [place] IN LAST 30 DAYS: No - Related Data Allergies/Adverse Reactions: hydromorphone HCl [From Dilaudid] Allergy (Verified 03/03/18 14:40) Home Medications: Lisinopril. Blood thinners. Jenuvia Past Medical History - Social History Frequency of alcohol use: None Drug Abuse: None - Past Medical History Cardiac Medical History: Reports: Hx Hypercholesterolemia, Hx Hypertension, Hx Peripheral Vascular Disease Pulmonary Medical History: Reports: Hx Asthma, Hx Pneumonia Neurological Medical History: Reports: Hx Cerebrovascular Accident. Denies: Hx Seizures, Hx Parkinson's Disease Endocrine Medical History: Reports: Hx Diabetes Mellitus Type 2 Renal/ Medical History: Reports: Hx Benign Prostatic Hyperplasia, Hx Renal Insufficiency. Denies: Hx Peritoneal Dialysis Malignancy Medical History: GI Medical History: Reports: Hx Gastroesophageal Reflux Disease, Hx Hiatal Hernia. Denies: Hx Pancreatitis Musculoskeltal Medical History: Reports Hx Arthritis - hands, Reports Hx Musculoskeletal Deformity, Reports Hx Musculoskeletal Trauma, Denies Hx Systemic Lupus Erythematosus Skin Medical History: Reports Hx Cellulitis Psychiatric Medical History: Reports: Hx Depression Traumatic Medical History: Reports: Hx Fractures - Abdomen ankle Infectious Medical History: Denies: Hx HIV Past Surgical History: Reports: Hx Inguinal Hernia, Hx Orthopedic Surgery - R BKA, lt shoulder repair, Hx Vascular Surgery - Femoral stent left leg - Immunizations Hx Diphtheria, Pertussis, Tetanus Vaccination: Yes - 2008 Physical Exam - Vital signs Vitals: Temp Pulse Resp BP Pulse Ox 98.3 F 104 H 16 111/74 98 07/29/19 16:42 07/29/19 16:42 07/29/19 16:42 07/29/19 16:42 07/29/19 16:42 Course - Vital Signs Vital signs: Temp Pulse Resp BP Pulse Ox 98.3 F 104 H 16 111/74 98 07/29/19 16:42 07/29/19 16:42 07/29/19 16:42 07/29/19 16:42 07/29/19 16:42 Doctor's Discharge - Discharge Referrals: TRISTON BARCENAS MD [Primary Care Provider] - Follow up as needed
[2019-07-29 18:14] LABS: ABSOLUTE BASOPHILS # (AUTO) 0.1 10^3/uL (0.0-0.2); ABSOLUTE EOSINOPHILS # (AUTO) 0.3 10^3/uL (0.0-0.6); ABSOLUTE LYMPHOCYTES (AUTO) 1.6 10^3/uL (0.5-4.7); ABSOLUTE NEUT (AUTO) 10.1 10^3/uL (1.7-8.2); BASOPHILS % (AUTO) 0.6 % (0-2); EOSINOPHILS % (AUTO) 2.4 % (0-6); HEMATOCRIT 42.3 % (37.9-51.0); HEMOGLOBIN 13.9 g/dL (13.5-17.0); LYMPHOCYTES % (AUTO) 12.3 % (13-45); MEAN CORPUSCULAR HEMOGLOBIN 27.8 pg (27.0-33.4); MEAN CORPUSCULAR HGB CONC 32.8 g/dL (32.0-36.0); MEAN CORPUSCULAR VOLUME 85 fl (80-97); MONOCYTES % (AUTO) 7.9 % (3-13); PLATELET COUNT 232 10^3/uL (150-450); RED BLOOD COUNT 4.98 10^6/uL (4.35-5.55); RED CELL DISTRIBUTION WIDTH 14.4 % (11.5-14.0); SEGMENTED NEUTROPHILS % (AUTO) 76.8 % (42-78); TOTAL CELLS COUNTED % (AUTO) 100 %; WHITE BLOOD COUNT 13.1 10^3/uL (4.0-10.5)
[2019-07-29 18:28] LABS: APPEARANCE,URINE CLOUDY; BILIRUBIN,URINE NEGATIVE (NEGATIVE); COLOR,URINE YELLOW; GLUCOSE, URINE NEGATIVE (NEGATIVE); KETONES,URINE NEGATIVE (NEGATIVE); LEUKOCYTE ESTERASE,URINE LARGE (NEGATIVE); NITRITE,URINE POSITIVE (NEGATIVE); PROTEIN,URINE 100 mg/dL (NEGATIVE); URINE SPECIFIC GRAVITY 1.012; UROBILINOGEN,URINE NEGATIVE mg/dL (<2.0)
[2019-07-29 18:31] LABS: ALBUMIN 3.9 g/dL (3.5-5.0); ALKALINE PHOSPHATASE 89 U/L (38-126); ANION GAP 8 (5-19); ASPARTATE AMINO TRANSFERASE 17 U/L (17-59); BILIRUBIN,DIRECT 0.3 mg/dL (0.0-0.4); BILIRUBIN,TOTAL 0.8 mg/dL (0.2-1.3); BLOOD UREA NITROGEN 32 mg/dL (7-20); CALCIUM 9.3 mg/dL (8.4-10.2); CARBON DIOXIDE 25 mmol/L (22-30); CHLORIDE 102 mmol/L (98-107); GLUCOSE 144 mg/dL (75-110); POTASSIUM 4.7 mmol/L (3.6-5.0); TOTAL PROTEIN 7.1 g/dL (6.3-8.2)
[2019-07-29] MEDS ORDERED: NORMAL SALINE 1000 ML 1,000 ML IV ONE (19:54)
--- NOTE | 2019-07-29 20:06 | ER Document Report ---
ED General - General Chief Complaint: Abdominal Pain Stated Complaint: SHORTNESS OF BREATH Time Seen by Provider: 07/29/19 17:11 Primary Care Provider: TRISTON BARCENAS MD [Primary Care Provider] - Follow up as needed Mode of Arrival: Ambulatory Information source: Patient TRAVEL OUTSIDE OF THE [place] IN LAST 30 DAYS: No - HPI Onset: Yesterday Onset/Duration: Gradual Quality of pain: Cramping, Pressure Severity: Moderate Pain Level: 3 Associated symptoms: Chills, Nonproductive cough, Fever, Nausea Exacerbated by: Denies Relieved by: Denies Similar symptoms previously: No Recently seen / treated by doctor: No Notes: 59 year old male with a history of BPH, CKD, DM, HTN, HLD, GERD, PVD s/p RLE amputation here for abdominal pain, bilateral flank pain, subjective fevers, chills, and pain with urination. The patient denies vomiting or diarrhea but he says the abdominal pain causes him to cough some. The patient has no history of kidney stones. - Related Data Allergies/Adverse Reactions: hydromorphone HCl [From Dilaudid] Allergy (Verified 03/03/18 14:40) Home Medications: Lisinopril. Blood thinners. Jenuvia Past Medical History - General Information source: Patient - Social History Smoking Status: Current Every Day Smoker Frequency of alcohol use: None Drug Abuse: None Family History: Reviewed & Not Pertinent, Arthritis, COPD, CVA, DM, Hyperlipidemia, Hypertension, Malignancy, Thyroid Disfunction Patient has suicidal ideation: No Patient has homicidal ideation: No - Past Medical History Cardiac Medical History: Reports: Hx Hypercholesterolemia, Hx Hypertension, Hx Peripheral Vascular Disease Pulmonary Medical History: Reports: Hx Asthma, Hx Pneumonia Neurological Medical History: Reports: Hx Cerebrovascular Accident. Denies: Hx Seizures, Hx Parkinson's Disease Endocrine Medical History: Reports: Hx Diabetes Mellitus Type 2 Renal/ Medical History: Reports: Hx Benign Prostatic Hyperplasia, Hx Renal Insufficiency. Denies: Hx Peritoneal Dialysis Malignancy Medical History: GI Medical History: Reports: Hx Gastroesophageal Reflux Disease, Hx Hiatal Hernia. Denies: Hx Pancreatitis Musculoskeletal Medical History: Reports Hx Arthritis - hands, Reports Hx Musc uloskeletal Deformity, Reports Hx Musculoskeletal Trauma, Denies Hx Systemic Lupus Erythematosus Skin Medical History: Reports Hx Cellulitis Psychiatric Medical History: Reports: Hx Depression Traumatic Medical History: Reports: Hx Fractures - Abdomen ankle Infectious Medical History: Denies: Hx HIV Past Surgical History: Reports: Hx Inguinal Hernia, Hx Orthopedic Surgery - R BKA, lt shoulder repair, Hx Vascular Surgery - Femoral stent left leg - Immunizations Hx Diphtheria, Pertussis, Tetanus Vaccination: Yes - 2008 Review of Systems - Review of Systems Constitutional: Chills, Fever EENT: No symptoms reported Cardiovascular: No symptoms reported Respiratory: No symptoms reported Gastrointestinal: Abdominal pain Genitourinary: Dysuria, Flank pain Male Genitourinary: No symptoms reported Musculoskeletal: No symptoms reported Skin: No symptoms reported Hematologic/Lymphatic: No symptoms reported Neurological/Psychological: No symptoms reported -: Yes All other systems reviewed and negative Physical Exam - Vital signs Vitals: Temp Pulse Resp BP Pulse Ox 98.3 F 104 H 16 111/74 98 07/29/19 16:42 07/29/19 16:42 07/29/19 16:42 07/29/19 16:42 07/29/19 16:42 - Notes Notes: GENERAL: Well-appearing, well-nourished and in no acute distress. HEAD: Atraumatic, normocephalic. EYES: Pupils equal round and reactive to light, extraocular movements intact, s clera anicteric, conjunctiva are normal. ENT: Nares patent, oropharynx clear without exudates. Moist mucous membranes. NECK: Normal range of motion, supple without lymphadenopathy or JVD. LUNGS: Breath sounds clear to auscultation bilaterally and equal. No wheezes rales or rhonchi. HEART: Regular rate and rhythm without murmurs, rubs or gallops. ABDOMEN: Soft, Tender over suprapubic area, normoactive bowel sounds. No guarding, no rebound. No masses appreciated. BACK: Bilateral Flank Tenderness EXTREMITIES: Normal range of motion, no pitting or edema. No clubbing or cyanosis. NEUROLOGICAL: Cranial nerves II through XII grossly intact. Normal speech, normal gait. PSYCH: Normal mood, normal affect. SKIN: Warm, Dry, normal turgor, no rashes or lesions noted. Course - Re-evaluation Re-evalutation: 07/29/19 21:13 The patient has suprapubic abdominal pain, bilateral flank pain, dysuria, and his UA is consistent with a UTI. Will treat with Levaquin to cover Pyelonephritis pathogens and will have patient follow up with his PCP. Patient given Tramadol for his pain and for a headache which he currently has as well. - Vital Signs Vital signs: Temp Pulse Resp BP Pulse Ox 98.3 F 104 H 16 111/74 98 07/29/19 16:42 07/29/19 16:42 07/29/19 16:42 07/29/19 16:42 07/29/19 16:42 - Laboratory Result Diagrams: 07/29/19 17:35 07/29/19 17:35 Laboratory results interpreted by me: 07/29/19 07/29/19 07/29/19 17:35 17:35 17:50 WBC 13.1 H RDW 14.4 H Lymph % (Auto) 12.3 L Absolute Neuts (auto) 10.1 H Sodium 135.3 L BUN 32 H Creatinine 2.06 H Est GFR ( Amer) 40 L Est GFR (MDRD) Non-Af 33 L Glucose 144 H Urine Protein 100 H Urine Blood SMALL H Urine Nitrite POSITIVE H Ur Leukocyte Esterase LARGE H Discharge - Discharge Clinical Impression: Pyelonephritis Headache Qualifiers: Headache type: unspecified Headache chronicity pattern: unspecified pattern Intractability: not intractable Qualified Code(s): R51 - Headache Condition: Stable Disposition: HOME, SELF-CARE Instructions: Abdominal Pain ([facility]), Pyelonephritis ([facility]), Levofloxacin Additional Instructions: Take Levaquin as prescribed. Drink plenty of water in the days to come. Follow up with your primary care doctor to ensure resolution of symptoms. Return to an ER for fevers, chills, sweats, or if worse. Use tylenol and the prescribed Tramadol for pain and headaches. Prescriptions: Tramadol HCl [Ultram 50 mg Tablet] 50 mg PO Q6HP PRN #10 tab PRN Reason: Levofloxacin [Levaquin 750 mg Tablet] 750 mg PO DAILY #5 tablet Referrals: TRISTON BARCENAS MD [Primary Care Provider] - Follow up as needed
--- NOTE | 2019-07-29 20:39 | RADIOLOGY REPORT (SQ) ---
EXAM DESCRIPTION: RadLex: CT ABDOMEN PELVIS WITHOUT IV CONTRAST CLINICAL HISTORY: 59 years Male; abd pain; TECHNIQUE: CT of the abdomen and pelvis without contrast. Oral contrast was administered. All CT scans at this facility use dose modulation, iterative reconstruction, and/or weight based dosing when appropriate to reduce radiation dose to as low as reasonably achievable. COMPARISON: CT 03/03/2018 FINDINGS: Abdomen: Liver:No focal lesions. No intrahepatic ductal distention. Gallbladder:Nondistended Pancreas:Within normal limits Spleen: Multiple small calcifications, typical for calcified granulomata. Right kidney:No hydronephrosis. No renal or ureteral calculi. Left kidney:No hydronephrosis. No renal or ureteral calculi. Adrenal glands:Within normal limits Vascular structures: A left iliac stent is noted. Scattered aortic calcification. No aortic aneurysm. Pelvis: Surgical clips are noted in the left inguinal region, likely previous inguinal hernia repair. No evidence for residual/recurrent hernia. No acute edema. Small bowel:No significant distention. Appendix:Within normal limits Colon:No distention or acute pericolonic edema. No free intraperitoneal fluid or air. Bones: No acute bone findings. Bladder: Unremarkable. No pelvic mass or adenopathy. Note that evaluation of the bowel and solid organs is somewhat limited due to lack of intravenous and oral contrast. IMPRESSION: 1. No acute findings 2. No significant change since 03/03/2018
--- NOTE | 2019-07-29 20:44 | RADIOLOGY REPORT (SQ) ---
EXAM DESCRIPTION: RadLex: XR CHEST 2 VIEWS Views: 2 CLINICAL HISTORY: 59 years Male; cough; COMPARISON: 11/17/2016 FINDINGS: Lungs: Lungs are clear, with no focal infiltrate, pneumothorax, or pleural effusion. Mediastinum: Mediastinum is within normal limits for this positioning. Bones: Bony structures are unremarkable. IMPRESSION: 1. No acute cardiothoracic abnormality.
[2019-07-29] MEDS ORDERED: LEVOFLOXACIN 750 MG/D5W RTU 150 ML IV ONE (20:48)
[2019-07-29] MEDS ORDERED: LEVOFLOXACIN 750 MG TABLET PO ONE (20:50)
[2019-07-29] MEDS ORDERED: TRAMADOL HCL 50 MG TABLET PO ONE (20:50)
--- NOTE | 2019-07-30 01:11 | EKG REPORT ---
SEVERITY:- ABNORMAL ECG - SINUS RHYTHM LEFT AXIS DEVIATION ABNRM R PROG, CONSIDER ASMI OR LEAD PLACEMENT : Confirmed by: Marjorie Staley MD 30-Jul-2019 01:10:58
== END 2019-07-29 22:40 | disposition home or self-care (01) ==
LOC: ER 16:25
DX: N12 Tubulo-interstitial nephritis, not specified as acute or chronic (principal); R51 Headache; R10.9 Unspecified abdominal pain; R06.02 Shortness of breath; R05 Cough; R50.9 Fever, unspecified; R11.0 Nausea; F17.200 Nicotine dependence, unspecified, uncomplicated; E78.00 Pure hypercholesterolemia, unspecified; I10 Essential (primary) hypertension; E11.9 Type 2 diabetes mellitus without complications; Z86.73 Personal history of transient ischemic attack (TIA), and cerebral infarction without residual deficits; Z89.511 Acquired absence of right leg below knee
CPT/HCPCS: 93005; 99284; 36415; 87086; 83690; 85025; 87088; 80053; 81001; 84484; 87186; 71046; 74176; 93010; A9270 ×2

== ENCOUNTER → 2019-10-06 | Outpatient (CLI) | payer MEDICARE, MEDICAID ==
[2019-10-06 11:32] LABS: ANION GAP 6 (5-19); BLOOD UREA NITROGEN 34 mg/dL (7-20); CALCIUM 9.6 mg/dL (8.4-10.2); CARBON DIOXIDE 27 mmol/L (22-30); CHLORIDE 103 mmol/L (98-107); GLUCOSE 223 mg/dL (75-110); POTASSIUM 4.9 mmol/L (3.6-5.0)
== END ==
LOC: OD 10:37
PROVIDERS: ATTEND Physician Assistant Surgical
DX: Z01.812 Encounter for preprocedural laboratory examination (principal); I70.90 Unspecified atherosclerosis; I10 Essential (primary) hypertension
CPT/HCPCS: 36415; 80048

== ENCOUNTER → 2019-10-14 | Outpatient (CLI) | payer MEDICARE, MEDICAID | LOC: OD 16:41 | PROVIDERS: ATTEND Surgery Vascular Surgery | DX: Z51.81 Encounter for therapeutic drug level monitoring (principal); Z79.899 Other long term (current) drug therapy | CPT/HCPCS: 36415; 82565 ==

== ENCOUNTER → 2020-02-16 | Outpatient (CLI) | payer MEDICARE, MEDICAID ==
[~2020-02-16] MED LIST: AMINOPHYLLINE INJ/PF 250 MG/10 ML SDV IV ONE; REGADENOSON INJ 0.4 MG/5 ML DISP.SYRIN IV ONE
--- NOTE | 2020-02-16 19:07 | DRAGON STRESS TEST REPORT ---
INTRAVENOUS LEXISCAN CARDIOLITE STRESS TEST USING SINGLE PHOTON EMMISION COMPUTERIZED TOMOGRAPHIC. DATE OF PROCEDURE: February 16, 2020. INDICATION : Chest pain CARDIAC RISK FACTORS: Hypertension, diabetes RESTING EKG: Sinus rhythm, no baseline ST-T wave changes are noted. STRESS EKG: No significant ST segment changes noted with LexiScan bolus REASON FOR TERMINATION: Protocol. PROCEDURE REPORT: Baseline heart rate 78 beats per minute with blood pressure of 150/77. Patient had no significant complaints. Patient was bolused with Lexiscan 0.4 mg intravenously followed by saline bolus. Heart rate at 2 minutes post bolus 88 with a blood pressure of 146/66. 3 minutes post bolus heart rate 83 with blood pressure of 156/74. No significant EKG changes were noted. Patient had no significant complaints during the procedure or postprocedure. CONCLUSIONS: Normal EKG and hemodynamic response to IV LexiScan. NUCLEAR DATA: At rest the patient was given 11.47 millicuries of technetium 99 sestamibi injected intravenously. As per protocol rest gated SPECT images were obtained. On day of stress test, the patient was given intravenous LexiScan at a dose of 0.4 mg in 5 mL intravenously, followed by flush with normal saline. Subsequently the stress dose of 33.2 millicuries of technetium 99 sestamibi was injected intravenously. As per protocol stress gated images were obtained. NUCLEAR INTERPRETATION: Both raw and processed data were used for interpretation. Visual, qualitative, computer-generated quantitative data was used. There was good myocardial uptake of technetium compound. Motion artifact and soft tissue attenuations were noted. Increased visceral uptake was noted. No definitive areas of transient perfusion defect noted, No definitive areas of fixed perfusion defect or scars noted. EKG gated imaging showed LV EF at 61%, rest and stress gated EF similar visually. T. I D. ratio was 1.01. Lung heart ratio noted to be within normal limits 0.24. No significant extracardiac and abnormal radiotracer activities were noted. RV free wall uptake was noted to be borderline increased consistent with probable mild RVH. IMPRESSION: Also refer to comments under nuclear interpretation. Also test results needs to be interpreted in the context of pretest probability. 1. No definitive areas of transient perfusion defect noted. 2. There is no definitive scintigraphic evidence of myocardial infarction/scar. 3. EKG gated imaging shows left ventricular ejection fraction of approx. 61%. 4. Clinical correlation requested as worse disease and or balanced ischemia could be missed. In approximately 10% of the cases Lexiscan may not cause adequate vasodilatory stress. RECOMMENDATIONS: Aggressive risk factor modification and medical management. Further evaluation may be needed if continued symptoms or other high risk indicators are noted on clinical evaluation. Close cardiology follow-up is also recommended. Clinical correlation with echocardiogram derived ejection fraction. Inability to exercise by itself can lead to increased cardiovascular event risks. Consider cardiology consultation and or follow-up if clinically indicated. I am available for cardiology evaluation and consultation if requested by the geomatics professor, unless patient already has a outbound supervisor. Dr. Letty Nieves. MRCP Board certified in cardiology and sleep medicine. Board certified in nuclear cardiology, adult echocardiography. MARIVEL
== END ==
LOC: RAD 07:11
PROVIDERS: ATTEND Family Medicine Geriatric Medicine
DX: R07.89 Other chest pain (principal); I10 Essential (primary) hypertension; E11.9 Type 2 diabetes mellitus without complications
CPT/HCPCS: 93017; 78452; A9500; J2785; J0280; Q9969

== ENCOUNTER 2020-04-20 10:39 | Day surgery (SDC) | payer MEDICARE, MEDICAID ==
[2020-04-17 11:44] LABS: HEMOGLOBIN 12.6 g/dL (13.5-17.0); MEAN CORPUSCULAR HGB CONC 33.1 g/dL (32.0-36.0); MEAN CORPUSCULAR VOLUME 85 fl (80-97); PLATELET COUNT 219 10^3/uL (150-450); RED BLOOD COUNT 4.49 10^6/uL (4.35-5.55); RED CELL DISTRIBUTION WIDTH 14.1 % (11.5-14.0); WHITE BLOOD COUNT 7.6 10^3/uL (4.0-10.5)
[2020-04-17 12:15] LABS: ANION GAP 9 (5-19); BLOOD UREA NITROGEN 23 mg/dL (7-20); CALCIUM 9.3 mg/dL (8.4-10.2); CARBON DIOXIDE 22 mmol/L (22-30); CHLORIDE 106 mmol/L (98-107); GLUCOSE 195 mg/dL (75-110); POTASSIUM 4.6 mmol/L (3.6-5.0)
--- NOTE | 2020-04-17 15:20 | EKG REPORT ---
SEVERITY:- ABNORMAL ECG - SINUS RHYTHM PROBABLE LEFT ATRIAL ABNORMALITY LEFT AXIS DEVIATION : Confirmed by: Marjorie Staley MD 17-Apr-2020 15:19:16
--- NOTE | 2020-04-18 09:20 | RADIOLOGY REPORT (SQ) ---
EXAM DESCRIPTION: CHEST PA/LATERAL IMAGES COMPLETED DATE/TIME: 04/17/2020 11:15 am REASON FOR STUDY: PRE-OP COMPARISON: 07/29/2019 EXAM PARAMETERS: NUMBER OF VIEWS: two views TECHNIQUE: Digital Frontal and Lateral radiographic views of the chest acquired. RADIATION DOSE: NA LIMITATIONS: none FINDINGS: LUNGS AND PLEURA: No opacities, masses or pneumothorax. No pleural effusion. MEDIASTINUM AND HILAR STRUCTURES: No masses or contour abnormalities. HEART AND VASCULAR STRUCTURES: Heart normal size. No evidence for failure. BONES: No acute findings. HARDWARE: None in the chest. OTHER: No other significant finding. IMPRESSION: NO SIGNIFICANT RADIOGRAPHIC FINDING IN THE CHEST. TECHNICAL DOCUMENTATION: JOB ID: [id number] 2010 [employer]- All Rights Reserved Reading location - IP/workstation name: [email or web address]
[~2020-04-20 10:39] MED LIST changes: +ACETAMINOPHEN 1,000 MG/100 ML RTUPB IV ONE; +ACETAMINOPHEN 1,000 MG/100 ML RTUPB IV PRN; -AMINOPHYLLINE INJ/PF 250 MG/10 ML SDV IV ONE; +IBUPROFEN 800 MG in NORMAL SALINE 250 ML IV PRN; +LACTATED RINGERS 1000 ML IV PRN; +LIDOCAINE 0.5% INJ-PF (5 MG/ML) 50 ML SDV SUBCUT PRN; +METRONIDAZOLE 500 MG/NS RTU 500 MG/100 ML RTUPB IV PRN; +PREGABALIN 50 MG CAPSULE PO PRN; -REGADENOSON INJ 0.4 MG/5 ML DISP.SYRIN IV ONE; +SUCCINYLCHOLINE CHLORIDE INJ 200 MG/10 ML VIAL ONE
[2020-04-20] MEDS ORDERED: METRONIDAZOLE 500 MG/NS RTU 500 MG/100 ML RTUPB IV ONE (11:20)
[2020-04-20] MEDS ORDERED: PREGABALIN 50 MG CAPSULE ONE (11:20)
[2020-04-20 11:52] LABS: INTERNATIONAL RATION (INR) 0.97; PARTIAL THROMBOPLASTIN TIME 35.5 SEC (23.5-35.8); PROTHROMBIN TIME 13.1 SEC (11.4-15.4)
[2020-04-20] MEDS ORDERED: BACITRACIN ZINC OINTMENT 15 GM ONE (13:14)
[2020-04-20] MEDS ORDERED: LIDOCAINE 2% JELLY 30 ML TUBE ONE (13:15)
[2020-04-20] MEDS ORDERED: BUPIVACAINE INJ/PF LIPOSOME/PF 266 MG/20 ML SDV ONE (13:15)
[2020-04-20] MEDS ORDERED: MIDAZOLAM 2 MG/2 ML INJ ONE (15:15)
[2020-04-20] MEDS ORDERED: FENTANYL CITRATE INJ/PF 100 MCG/2 ML AMPUL ONE ×2 (15:15→15:40)
[2020-04-20] MEDS ORDERED: PROPOFOL INJ 200 MG/20 ML VIAL IV ONE (15:16)
--- NOTE | 2020-04-20 16:15 | Discharge Summary ---
Discharge Summary (SDC) - Discharge Final Diagnosis: 3 cm subcutaneous perianal lesion, chronic granuloma. Date of Surgery: 04/20/20 Discharge Date: 04/20/20 Condition: Stable Treatment or Instructions: Discharge home. Diet as tolerated. Activity: Nonstrenuous. Remove packing tomorrow and shower normally. Dry dressing to perianal wound. Dunbar 10/325 mg p.o. every 6 hours as needed for pain. Prescriptions: Hydrocodone/Acetaminophen [Dunbar 10-325 mg Tablet] 1 tab PO Q6HP PRN #20 tablet PRN Reason: Referrals: TRISTON BARCENAS MD [Primary Care Provider] - Discharge Diet: As Tolerated Respiratory Treatments at Home: Deep Breathing/Coughing, Incentive Spirometer Discharge Activity: Balance Activity w/Rest Home Care Assistance: None Needed Report the Following to Your Physician Immediately: Shortness of Breath, Nausea, Vomiting, Increase in Pain, Fever over 101 Degrees, Unusual Bleeding, Redness, Swelling, Warmth
--- NOTE | 2020-04-20 16:19 | Operative Report ---
Nonrecallable Operative Report DATE OF SURGERY: 04/20/20 PREOPERATIVE DIAGNOSIS: 3 cm subcutaneous perianal lesion. Chronic granulomatous changes and granulation tissue present. POSTOPERATIVE DIAGNOSIS: Same as above OPERATION: Excision of 3 cm subcutaneous perianal masslike lesion. SURGEON: RONEY CARRENO ANESTHESIA: GA TISSUE REMOVED OR ALTERED: 3 cm perianal granulomatous lesion COMPLICATIONS: None apparent ESTIMATED BLOOD LOSS: Minimal PROCEDURE: Drains/implants: 4 x 4 gauze soaked in Betadine. Procedure detail: After informed consent was obtained, the patient was brought to the operating room and laid in the prone jackknife position. The area of the anus and rectum were prepped and draped in a normal sterile fashion. An anal block was performed. The lesion had a small opening. This was probed, and a tract was found extending down toward the rectum. The tract was excised. There was a small cavity with hypertrophic granulation tissue present. All of the affected tissue was excised down to the deep tissues of the perirectal area. Peroxide was injected into the tract, however no leakage into the rectum could be identified. A Hill-Vasquez retractor was inserted into the rectum, the rectum was inspected circumferentially. No openings could be identified connecting the tract with the rectum. Once this was completed, the 3 cm lesion was excised completely and passed off the field. It was sent to pathology for examination. Again the wound and rectum were examined, and no connection could be identified. Once this was completed, the wound was packed with a 4 x 4 gauze soaked in Betadine. A dressing was placed, and the procedure was concluded. All sponge, instrument, and needle counts were correct x2. Condition: Stable.
[2020-04-20 18:15] VITALS: BP 142/70
== END 2020-04-20 17:41 | disposition home or self-care (01) ==
LOC: OROUT 10:39
PROVIDERS: ATTEND Surgery
DX: K62.89 Other specified diseases of anus and rectum (principal); L92.8 Other granulomatous disorders of the skin and subcutaneous tissue; Z90.01 Acquired absence of eye; I10 Essential (primary) hypertension; E78.6 Lipoprotein deficiency; E11.51 Type 2 diabetes mellitus with diabetic peripheral angiopathy without gangrene; Z20.828 Contact with and (suspected) exposure to other viral communicable diseases; F17.210 Nicotine dependence, cigarettes, uncomplicated; Z79.899 Other long term (current) drug therapy; Z89.511 Acquired absence of right leg below knee; Z79.82 Long term (current) use of aspirin; Z79.02 Long term (current) use of antithrombotics/antiplatelets; Z79.84 Long term (current) use of oral hypoglycemic drugs; Z95.828 Presence of other vascular implants and grafts
CPT/HCPCS: 46922; 93005; 36415 ×2; 82947; 85027; 85610; 85730; 80048; 71046; 93010; U0003; J3010; J3490; J7050; J2704; A9270; J0131; C9290; J1741; C9803; 87635; 902; J0330; J2250